=== PATIENT | male | born 1945 | race Caucasian/White ===

== ENCOUNTER 2016-08-07 15:14 | Emergency (ER) | payer OTHER, MEDICARE ==
[~2016-08-07] VITALS: Ht 188 cm; Wt 122.2 kg
[2016-08-07 15:24] VITALS: TEMP 36.6; Ht 188 cm; Wt 122.2 kg
[2016-08-07] MEDS ORDERED: SODIUM CHLORIDE 0.9% 1000ML 1,000 ML IV STA (16:20)
[2016-08-07] MEDS ORDERED: CEFTRIAXONE SOD INJ 1 GM ADDVIAL IV STA (16:20)
[2016-08-07 16:53] LABS: HEMATOCRIT 45.2 % (42-52); MEAN CELL VOLUME 86.3 fL (80-100); MEAN CORPUSCULAR HGB CONC 34.7 g/dl (32-36); MEAN PLATELET VOLUME 9.5 fL (7.4-10.4); PLATELET COUNT 198 K/uL (130-400); RED BLOOD COUNT 5.24 M/uL (4.7-6.1); WHITE BLOOD COUNT 13.51 K/uL (4.8-10.8)
[2016-08-07 17:02] LABS: INR 1.1 (0.9-1.1); PROTHROMBIN TIME (PATIENT) 11.9 SECONDS (9.0-12.0)
--- NOTE | 2016-08-07 17:07 | DIAGNOSTIC IMAGING REPORT ---
CHEST ONE VIEW PORTABLE CLINICAL HISTORY: Fever and sepsis COMPARISON STUDY: No previous studies for comparison. FINDINGS: The cardiac and mediastinal contours are normal. There is no evidence of focal pulmonary consolidation. There is no evidence of failure. No pleural effusions are visualized.[ There are linear bibasilar opacities, likely representing subsegmental atelectasis. Differential attenuation of the hemithoraces, likely relates to technical factors. IMPRESSION: Linear bibasilar opacities, likely atelectatic Electronically signed by: Shamir Hinson M.D. 08/07/2016 5:05 PM Dictated Date/Time: 08/07/2016 5:04 PM
[2016-08-07 17:14] LABS: BUN/CREATININE RATIO 16.4 (10-20); CALCIUM 9.5 mg/dl (8.5-10.1); CREATININE 1.9 mg/dl (0.60-1.40); POTASSIUM 3.8 mmol/L (3.5-5.1)
[2016-08-07 17:15] LABS: BASO % 0.1 %; BASO ABS # 0.02 K/uL (0-0.2); COMPLETE YES; EOS % 0.1 %; IG% 0.4 %; LYMPH % 2.7 %; LYMPH ABS # 0.36 K/uL (1.2-3.4); MONO % 7.2 %; NEUT % 89.5 %
[2016-08-07] MEDS ORDERED: LOSA1TAB38 PO (17:18)
[2016-08-07] MEDS ORDERED: ACET-1256 PO (17:18)
[2016-08-07] MEDS ORDERED: SYMIN160 INH (17:18)
[2016-08-07] MEDS ORDERED: PRLSR20 PO (17:18)
[2016-08-07] MEDS ORDERED: ATOR-22 PO (17:18)
[2016-08-07] MEDS ORDERED: NAPR1TAB9 PO (17:18)
[2016-08-07] MEDS ORDERED: TRIA75TA53 PO (17:18)
[2016-08-07] MEDS ORDERED: ASPI81TA28 PO (17:18)
[2016-08-07] MEDS ORDERED: TRMCR130WC TOP (17:18)
[2016-08-07] MEDS ORDERED: CARV6.252 PO (17:18)
[2016-08-07] MEDS ORDERED: SPRIN/30 INH (17:18)
[2016-08-07] MEDS ORDERED: LEVO1TAB33 PO (17:18)
[2016-08-07] MEDS ORDERED: SPIR25TA PO (17:18)
[2016-08-07 17:19] LABS: CKMB/CK RATIO 1.2 (0-3.0)
[2016-08-07] MEDS ORDERED: ONDANSETRON INJ 2 MG/ML 2 ML VIAL IV STA (17:26)
[2016-08-07 18:51] LABS: MANUAL MICROSCOPIC REQUIRED? NO; REVIEW REQ? NO; URINE APPEARANCE CLOUDY (CLEAR); URINE BILIRUBIN NEG (NEG); ZZURINE CULT IF INDIC CATH YES
[2016-08-07 18:52] LABS: URINE COLOR YELLOW; URINE NITRITE NEG (NEG); UROBILINOGEN NEG (NEG)
[2016-08-07] MEDS ORDERED: LEVO-366 PO (19:55)
--- NOTE | 2016-08-07 19:56 | EMERGENCY ROOM VISIT NOTE ---
History Report prepared by Jaimieibjorge: Joanne Fernandez Under the Supervision of: Dr. Zach Bragg D.O. First contact with patient: 16:14 Chief Complaint: URINARY SYMPTOMS Stated Complaint: FEVER,NAUSEA,CAN'T VOID Nursing Triage Summary: Patient states "I think I have a urinary tract infection or prostatitis. I have had fevers on and off. I tried to do a urinalysis at the PCP about 20 minutes ago. I could only get out a few drops of pus." 750mg Levaquin taken this morning. 1 Aleve and 1 extra strength Tylenol taken at 1230. History of Present Illness The patient is a 71 year old male who presents to the Emergency Room with complaints of persistent urinary symptoms that started earlier today. He is accompanied by his . He reports he hasn't been able to urinate normally since 1230 this afternoon. He rates his discomfort as a 5/10 in severity. Aleve and Tylenol have provided minimal relief for his discomfort. He reports he has a history of UTI's and prostatitis. He saw Dr. Carbajal at [facility] earlier today and when he tried to give a urine sample, "2 small drops of pus came out". He notes when he does urinate, he experiences dysuria. The patient believes he has had intermittent fevers for the past day and his states "he has had terrible chills all day". His temperature at the [facility] was approximately 100.6. He has not eaten today and has been very nauseous, but has not vomited. Source of History: patient Onset: earlier today Position: other (urinary system) Symptom Intensity: 5/10 Timing: other (persistent) Modifying Factors (Relieving): ibuprofen (Aleve, Ibuprofen) Associated Symptoms: + chills, + fevers, + nausea, No vomiting Review of Systems See HPI for pertinent positives & negatives. A total of 10 systems reviewed and were otherwise negative. Past Medical & Surgical Medical Problems: (1) Prostatitis Social History Smoking Status: Former Smoker Alcohol Use: occasionally Drug Use: none Marital Status: Housing Status: lives with family Occupation Status: retired Current/Historical Medications Scheduled Acetaminophen (Tylenol), 500 MG PO PRN Aspirin (Aspirin Ec), 81 MG PO DAILY Atorvastatin (Lipitor), 20 MG PO DAILY Budesonide/Formoterol Fumarate (Symbicort 160/4.5 Inhaler ), 2 PUFFS INH BID Carvedilol (Coreg), 6.25 MG PO BID Levofloxacin (Levaquin), 500 MG PO DAILY Levofloxacin (Levaquin), 500 MG PO DAILY Losartan Potassium (Cozaar), 100 MG PO DAILY Omeprazole (Prilosec), 20 MG PO DAILY Spironolactone (Aldactone), 25 MG PO DAILY Tiotropium [place] (Spiriva Handihaler), 1 CAP INH DAILY Triamcinolone Acet (Aristocort 0.1%), 1 APPLN TOP BID Triamterene/Hctz (Maxzide 75MG/50MG), 1 TAB PO DAILY Scheduled PRN Naproxen (Aleve), 220-440 MG PO TID PRN for PT Allergies Coded Allergies: Ciprofloxacin (Verified Allergy, Mild, Hives, 08/07/16) Sulfamethoxazole w/Trimethoprim (Verified Allergy, Mild, Hives, 08/07/16) Physical Exam Vital Signs Date Time Temp Pulse Resp B/P Pulse Ox O2 Delivery O2 Flow Rate FiO2 08/07/16 18:22 85 20 89/54 97 Room Air 08/07/16 15:24 36.6 98 16 95/67 94 Room Air Physical Exam CONSTITUTIONAL/VITAL SIGNS: Reviewed / noted above. GENERAL: Non-toxic in appearance. INTEGUMENTARY: Warm, dry, and [place]. HEAD: Normocephalic. EYES: without scleral icterus or trauma. ENT/OROPHARYNX: clear and moist. LYMPHADENOPATHY/NECK: Is supple without lymphadenopathy or meningismus. RESPIRATORY: Lungs clear and equal. CARDIOVASCULAR: Regular rate and rhythm. GI/ABDOMEN: Soft and nontender. No organomegaly or pulsatile mass. No rebound or guarding. Normal bowel sounds. EXTREMITIES: Warm and well perfused. BACK: No CVA tenderness. NEUROLOGICAL: Intact without focal deficits. PSYCHIATRIC: normal affect. MUSCULOSKELETAL: Normally developed with good muscle tone. Rectal exam: non tender prostate. Medical Decision & Procedures ER Provider Diagnostic Interpretation: This X-Ray was reviewed and interpreted by myself and the radiologist. CHEST ONE VIEW PORTABLE IMPRESSION: Linear bibasilar opacities, likely atelectatic Electronically signed by: Shamir Hinson M.D. 08/07/2016 5:05 PM Laboratory Results 08/07/16 16:30 Red Blood Count 5.24, Mean Corpuscular Volume 86.3, Mean Corpuscular Hemoglobin 30.0, Mean Corpuscular Hemoglobin Concent 34.7, Mean Platelet Volume 9.5, Neutrophils (%) (Auto) 89.5, Lymphocytes (%) (Auto) 2.7, Monocytes (%) (Auto) 7.2, Eosinophils (%) (Auto) 0.1, Basophils (%) (Auto) 0.1, Neutrophils # (Auto) 12.09, Lymphocytes # (Auto) 0.36, Monocytes # (Auto) 0.97, Eosinophils # (Auto) 0.02, Basophils # (Auto) 0.02 08/07/16 16:30 Test 08/07/16 16:30 08/07/16 18:15 White Blood Count 13.51 K/uL (4.8-10.8) Red Blood Count 5.24 M/uL (4.7-6.1) Hemoglobin 15.7 g/dL (14.0-18.0) Hematocrit 45.2 % (42-52) Mean Corpuscular Volume 86.3 fL (80-100) Mean Corpuscular Hemoglobin 30.0 pg (25-34) Mean Corpuscular Hemoglobin Concent 34.7 g/dl (32-36) Platelet Count 198 K/uL (130-400) Mean Platelet Volume 9.5 fL (7.4-10.4) Neutrophils (%) (Auto) 89.5 % Lymphocytes (%) (Auto) 2.7 % Monocytes (%) (Auto) 7.2 % Eosinophils (%) (Auto) 0.1 % Basophils (%) (Auto) 0.1 % Neutrophils # (Auto) 12.09 K/uL (1.4-6.5) Lymphocytes # (Auto) 0.36 K/uL (1.2-3.4) Monocytes # (Auto) 0.97 K/uL (0.11-0.59) Eosinophils # (Auto) 0.02 K/uL (0-0.5) Basophils # (Auto) 0.02 K/uL (0-0.2) RDW Standard Deviation 44.6 fL (36.4-46.3) RDW Coefficient of Variation 14.3 % (11.5-14.5) Immature Granulocyte % (Auto) 0.4 % Immature Granulocyte # (Auto) 0.05 K/uL (0.00-0.02) Prothrombin Time 11.9 SECONDS (9.0-12.0) Prothromb Time International Ratio 1.1 (0.9-1.1) Activated Partial Thromboplast Time 25.6 SECONDS (21.0-31.0) Partial Thromboplastin Ratio 1.0 Anion Gap 12.0 mmol/L (3-11) Est Creatinine Clear Calc Drug Dose 51.0 ml/min Estimated GFR () 40.8 Estimated GFR (Non- 35.2 BUN/Creatinine Ratio 16.4 (10-20) Calcium Level 9.5 mg/dl (8.5-10.1) Total Bilirubin 1.2 mg/dl (0.2-1) Direct Bilirubin 0.2 mg/dl (0-0.2) Aspartate Amino Transf (AST/SGOT) 27 U/L (15-37) Alanine Aminotransferase (ALT/SGPT) 41 U/L (12-78) Alkaline Phosphatase 75 U/L (45-117) Total Creatine Kinase 69 U/L (39-308) Creatine Kinase MB 0.8 ng/ml (0.5-3.6) Creatine Kinase MB Ratio 1.2 (0-3.0) Total Protein 7.3 gm/dl (6.4-8.2) Albumin 3.9 gm/dl (3.4-5.0) Lipase 100 U/L (73-393) Urine Color YELLOW Urine Appearance CLOUDY (CLEAR) Urine pH 6.0 (4.5-7.5) Urine Specific [place] 1.030 (1.000-1.030) Urine Protein 3+ (NEG) Urine Glucose (UA) NEG (NEG) Urine Ketones NEG (NEG) Urine Occult Blood 3+ (NEG) Urine Nitrite NEG (NEG) Urine Bilirubin NEG (NEG) Urine Urobilinogen NEG (NEG) Urine Leukocyte Esterase MODERATE (NEG) Laboratory results as stated above per my review. Medications Administered Medications (Trade) Dose Ordered Sig/Felipe Route Start Time Stop Time Status Last Admin Dose Admin Sodium Chloride (Nss 1000ml) 1,000 ml @ 500 mls/hr Q2H STAT IV 08/07/16 16:20 08/07/16 18:19 DC 08/07/16 16:37 500 MLS/HR Ceftriaxone Sodium (Rocephin Inj) 1 gm NOW STAT IV 08/07/16 16:20 08/07/16 16:24 DC 08/07/16 18:17 1 GM Ondansetron HCl (Zofran Inj) 4 mg NOW STAT IV 08/07/16 17:26 08/07/16 17:27 DC 08/07/16 18:21 4 MG ED Course 161: Previous medical records were reviewed. The patient was evaluated in room B8. A complete history and physical examination was performed. 1620: Rocephin 1 gm IV, NSS 1000 ml @ 500 mls/hr IV. 162: Bladder scan performed by nursing staff revealed less than 45 CC's of urine in the patients bladder. 1725: Zofran 4 mg IV. 1944: I reevaluated the patient. He is feeling well. I discussed his results and discharge instructions and he verbalized complete understanding and agreement. Medical Decision Differential includes viral illness, influenza, streptococcal pharyngitis, meningitis, pneumonia, sinusitis, UTI, pyelonephritis, otitis media. This is a 71-year-old male who presents to the ED with a chief complaint of urinary frequency as well as some chills. The patient states that his symptoms started around 11 AM this morning. She has a little nausea with eating. He was seen by his PCP and states that there was purulent drainage from his penis and he was sent here for evaluation. Blood pressure is 95/67. He is afebrile. He reportedly had a temperature of 100.1 at the PCPs office. EKG shows a normal sinus rhythm. White blood cell count was 13.5. The BUN is 31 and the creatinine is 1.9. Baseline creatinine is 1.4. Chest x-ray reveals some linear basilar opacity/atelectasis. Urinalysis suggests infection. The patient took a Levaquin earlier today at 11:30 AM. He was given IV Rocephin here as well as a liter of IV fluids and some IV Zofran. He is felt to be stable for discharge and outpatient follow-up. The patient feels comfortable going home and is without significant symptoms at this time. Prescription for Levaquin was given. The patient requested Levaquin. He states that he has had allergy testing and is able to take Levaquin. He states that his doctor gives him this to have on hand at home for pulmonary symptoms. Impression Primary Impression: Urinary tract infection Additional Impressions: Dehydration Renal insufficiency Scribe Attestation The scribe's documentation has been prepared under my direction and personally reviewed by me in its entirety. I confirm that the note above accurately reflects all work, treatment, procedures, and medical decision making performed by me. Departure Information Dispostion Home / Self-Care Prescriptions Levofloxacin (Levaquin) 500 Mg Tab 500 MG PO DAILY for 7 Days, #7 TAB Prov: Zach Bragg D.O. 08/07/16 Referrals Robert Carbajal M.D. (PCP) Patient Instructions My [facility], UTI Additional Instructions Levaquin as prescribed. Increase daily fluid intake. Follow-up with your doctor for recheck in one to 3 days. Return for worsening. Problem Qualifiers
[2016-08-07 20:11] LABS: URINE APPEARANCE TURBID (CLEAR); URINE COLOR DK YELLOW; URINE NITRITE NEG (NEG); URINE SPECIFIC GRAVITY 1.023 (1.000-1.030); UROBILINOGEN NEG (NEG)
[2016-08-07 20:15] LABS: MANUAL MICROSCOPIC REQUIRED? NO; REVIEW REQ? YES
[2016-08-07 20:16] LABS: URINE BILIRUBIN NEG (NEG)
[2016-08-07 20:34] VITALS: BP 118/65; PULSE 84; O2SAT 94
== END 2016-08-07 20:39 | disposition home or self-care (01) ==
LOC: C.EDB 15:15
DX: N39.0 Urinary tract infection, site not specified (principal); E86.0 Dehydration; N28.9 Disorder of kidney and ureter, unspecified; Z87.891 Personal history of nicotine dependence; Z79.82 Long term (current) use of aspirin; Z79.899 Other long term (current) drug therapy; Z88.2 Allergy status to sulfonamides

== ENCOUNTER 2021-10-04 10:08 | Inpatient (IN) ==
[2021-10-04] MEDS ORDERED: SODIUM CHLORIDE 0.9% 1000ML 1,000 ML IV ONE (10:24)
[2021-10-04 10:35] LABS: Basophils # (auto) 0.09 K/uL (0-0.2); Basophils % (auto) 1.6 %; Eosinophils # (auto) 0.06 K/uL (0-0.5); Eosinophils % (auto) 1.1 %; Hematocrit (blood only) 41.7 % (42-52); Hemoglobin 13.8 g/dL (14.0-18.0); Immature Granulocytes # (auto) 0.01 K/uL (0.00-0.02); Immature Granulocytes % (auto) 0.2 %; Lymphocytes # (auto) 1.33 K/uL (1.2-3.4); Lymphocytes % (auto) 23.7 %; Mean Corpuscular Hemoglobin 30.1 pg (25-34); Mean Corpuscular Hgb Conc 33.1 g/dL (32-36); Mean Corpuscular Volume 90.8 fL (80-100); Mean Platelet Volume 9.5 fL (7.4-10.4); Monocytes # (auto) 0.57 K/uL (0.11-0.59); Monocytes % (auto) 10.2 %; Neutrophils # (auto) 3.55 K/uL (1.4-6.5); Neutrophils % (auto) 63.2 %; Platelet Count 387 K/uL (130-400); RDW Coefficient of Variation 15.6 % (11.5-14.5); RDW Standard Deviation 51.9 fL (36.4-46.3); Red Blood Count 4.59 M/uL (4.7-6.1); White Blood Count 5.61 K/uL (4.8-10.8)
--- NOTE | 2021-10-04 10:39 | XRay Report ---
SINGLE VIEW CHEST CLINICAL HISTORY: Atypical chest pain. Dyspnea FINDINGS: An AP, portable, upright chest radiograph is compared to study dated 08/07/2016. The heart i s enlarged noting atherosclerotic calcification of the thoracic aorta. The pulmonary vasculature is n oncongested. Emphysematous changes suspected. Airspace opacities are seen in the mid to lower lungs. No large pleural effusion or pneumothorax is identified. The skeletal structures are osteopenic. The bony thorax is grossly intact. IMPRESSION: 1. Cardiomegaly and suspect emphysema. There is no radiographic evidence of congestive failure. 2. Bibasilar opacities likely represent scarring/atelectasis. Correlate clinically for evidence of a superimposed infectious/inflammatory pneumonitis ACT 112: Negative or not required by law. Electronically signed by: Babatunde Kirkpatrick M.D. 10/04/2021 10:38 AM
[2021-10-04] MEDS ORDERED: METOPROLOL TARTRATE 1 MG/ML VIAL IV STA ×2 (10:49→11:46)
[2021-10-04 11:09] LABS: Albumin Globulin Ratio 1.1 (0.9-2); Albumin Level 3.8 gm/dl (3.4-5.0); BUN Creatinine Ratio 17.7 (10-20); Calcium 9.5 mg/dl (8.5-10.1); Creatinine Clr Calc Pharmacy 50.1 ml/min; Est GFR (African American) 40.4 ml/min; Est GFR (Non-African American) 34.9 ml/min; Globulin 3.6 gm/dl (2.5-4.0); Magnesium 1.6 mg/dl (1.7-2.4); Phosphorus 3.1 mg/dl (2.5-4.9); Potassium 4.3 mmol/L (3.5-5.1); Total Protein 7.4 gm/dl (6.0-8.3)
[2021-10-04 11:31] LABS: Influenza A virus by PCR Negative (Neg); Influenza B virus by PCR Negative (Neg); RSV by PCR Negative (Neg); SARS CoV2 RNA(COVID-19) InHosp NEGATIVE (Negative)
--- NOTE | 2021-10-04 11:33 | Emergency Department Note ---
Impression & Plan Atrial fibrillation with rapid ventricular response, CKD (chronic kidney disease), COPD (chronic obstructive pulmonary disease), Hypomagnesemia ED Provider Note NAME: PRIYA SAMAYOA AGE: 76 SEX: M ARRIVES VIA: Walk-In INFORMANT: Patient ED PROVIDER(S): Hernandez Espinoza MD CHIEF COMPLAINT: Shortness of breath, referred PLAN: Disposition: Admit MEDICAL DECISION MAKING: The patient is a pleasant 76-year-old gentleman with a past medical history of CKD, COPD, with recent new diagnosis of atrial fibrillation during PCP visit on 09/28 where he was switched from carvedilol to 25 mg daily of metoprolol succinate and started on Eliquis who presents to the emergency department referred from his [facility] office for admission after having routine visit today and was noted to be in A. fib RVR in the 130s with low blood pressure systolic in the 90s. Patient reports he has been having ongoing shortness of breath since July where he was seen in [place] at that time and treated for COPD and negative CTA of the chest per the report. He reports progressive worsening of the shortness of breath since then and in particular over the past month. He notes he was diagnosed with a urinary tract infection in August and is completing 21 days of ciprofloxacin. He followed up with his primary care doctor last week for his ongoing shortness of breath and it was noted that he was in A. fib and treatment was initiated. He has a scheduled appoint with cardiology on Sunday. He reports prior to today he has been using his inhalers more frequently due to feeling his shortness of breath was related to COPD. He admits that he does not feel palpitations or heart racing see his A. fib and despite his heart rate in the 130s-150s during our interview he denied having any sensation in his chest. Therefore it is unclear when the patient's A. fib may actually have started. On arrival the patient is fatigued appearing but no acute distress, afebrile with heart rate in the 130s-150s in atrial fibrillation and blood pressure otherwise stable. He has 1+ bilateral lower extremity pitting edema which she reports is chronic for the patient for years and is not particularly worse. EKG demonstrates atrial fibrillation with RVR in the 150s without overt acute ischemia. Chest x-ray with no overt acute cardiopulmonary process and likely atelectasis at the bases. WBC and platelets within normal limits. H/H13.8/41.7. Creatinine 1.86 which appears improved from prior outpatient values in the [facility] records. Magnesium 1.6 with repletion provided. ALT 73, nonspecific and LFTs otherwise unremarkable. High-sensitivity troponin 10.3, within normal limits. BNP 400, nonspecific and in the setting of the patient's RVR. Lipase is not elevated. TSH within normal limits. UA without convincing evidence of infection. Covid-19 PCR negative. Influenza and RSV PCR negative. Patient was treated with 500 cc of normal saline and 5 mg of IV Lopressor with subsequent improvement in his heart rate to the 100s-120s. He was then ordered for second 5 mg of IV Lopressor but then this was held as his rate continued to improve to 90s-100s. He was then ordered for 25 mg of oral Lopressor. Given the patient's atrial fibrillation with RVR in the setting of his CKD reasonable to admit the patient for further management. Case was discussed with Laila Baker [facility] PAC with [facility]. [facility] [place] [facility], who will evaluate the patient for admission. Triage Nursing notes reviewed and agree them. Prior medical records reviewed Vital Signs: reviewed and remarkable for tachycardia. Differential diagnosis: Reactive airway disease, pneumonia, pneumothorax, COPD, CHF, infections, cardiac ischemia, pulmonary embolism, musculoskeletal, gastrointestinal, as well as other pathologies. ER treatment provided: See below. Diagnostics interpreted by me: ECG: Atrial fibrillation, 151 bpm, no ectopy, right bundle branch block, T wave abnormality, no overt ST elevation or depression. Cardiac Monitoring: An order for continuous cardiac monitoring was placed and demonstrated atrial fibrillation, 151 bpm, no ectopy. Laboratory studies: See below Imaging studies: See below Consultation(s): Case was discussed with Laila [facility]. HPI: The patient is a pleasant 76-year-old gentleman with a past medical history of CKD, COPD, with recent new diagnosis of atrial fibrillation during PCP visit on 09/28 where he was switched from carvedilol to 25 mg daily of metoprolol succinate and started on Eliquis who presents to the emergency department referred from his [facility] office for admission after having routine visit today and was noted to be in A. fib RVR in the 130s with low blood pressure systolic in the 90s. Patient reports he has been having ongoing shortness of breath since July where he was seen in [place] at that time and treated for COPD and negative CTA of the chest per the report. He reports progressive worsening of the shortness of breath since then and in particular over the past month. He notes he was diagnosed with a urinary tract infection in August and is completing 21 days of ciprofloxacin. He followed up with his primary care doctor last week for his ongoing shortness of breath and it was noted that he was in A. fib and treatment was initiated. He has a scheduled appoint with cardiology on Sunday. He reports prior to today he has been using his inhalers more frequently due to feeling his shortness of breath was related to COPD. He admits that he does not feel palpitations or heart racing see his A. fib and despite his heart rate in the 130s-150s during our interview he denied having an y sensation in his chest. Therefore it is unclear when the patient's A. fib may actually have started. ROS: See above HPI for pertinent positives & negatives. A total of 10 systems reviewed and were otherwise negative. VITALS:See Below PHYSICAL EXAMINATION: GENERAL: Awake, alert, well-appearing, in no distress HENT: Normocephalic, atraumatic. Oropharynx with dry mucous membranes and otherwise unremarkable. EYES: Normal conjunctiva. Sclera non-icteric. NECK: Supple. No nuchal rigidity. FROM. No JVD. RESPIRATORY: Clear to auscultation. CARDIAC: Tachycardic rate, irregular rhythm. Extremities warm and well perfused. Pulses equal. ABDOMEN: Soft, non-distended. No tenderness to palpation. No rebound or guarding. No masses. RECTAL: Deferred. MUSCULOSKELETAL: Chest examination reveals no tenderness. The back is sym metrical on inspection without obvious abnormality. There is no CVA tenderness to palpation. No joint edema. LOWER EXTREMITIES: Calves are equal size bilaterally and non-tender. 1+ BLE pitting edema. No discoloration. NEURO: Normal sensorium. No sensory or motor deficits noted. SKIN: No rash or jaundice noted. ED COURSE: Critical Care: I have personally spent greater than 45 minutes of critical care time in the direct management of this patient. This includes bedside care, interpretation of diagnostic studies, and testing, discussion with consultants, patient, and family members, and other required patient management activities. This 45 minutes is in excess of all separately billable procedures. Hernandez Espinoza MD Past Med/Surg History Medical History Atrial fibrillation BPH (benign prostatic hyperplasia) COPD, group C, by GOLD 2017 classification Dyslipidemia GERD (gastroesophageal reflux disease) HTN (hypertension) Hx of melanoma of skin SILVERMAN (nonalcoholic steatohepatitis) Prostatitis Stage 3b chronic kidney disease (CKD) Surgical History No significant past surgical history Family History Denies family history of Heart disease Kidney disease Social History Smoking Status: Former smoker Smoking End Date: 24 years ago; Hx Alcohol Use: No Hx Substance Use: No Preferred Language: [place] Communication Ability: Effective Assistant At Surgery Required: No Beliefs That Will Affect Care: None Current Living Situation: Spouse Other Information That Helps Us Care for You: No Feels Safe at Home: Yes Safety Concerns: Feels Safe At This Time Assistive Devices: Cane and Glasses Allergies Allergies Allergy/AdvReac Type Severity Reaction Status Date / Time Bactrim Allergy Mild Hives Verified 08/07/16 15:24 sulfamethoxazole Allergy Mild Hives Verified 10/04/21 11:18 trimethoprim Allergy Mild Hives Verified 10/04/21 11:18 Home Meds Home Medications Medication Instructions Recorded Confirmed albuterol sulfate 90 mcg/actuation 2 puff INHALATION Q4 PRN 10/04/21 10/04/21 aerosol inhaler aspirin 81 mg tablet,delayed 81 mg PO DAILY 10/04/21 10/04/21 release atorvastatin 20 mg tablet 20 mg PO DAILY 10/04/21 10/04/21 budesonide-formoterol HFA 160 2 puff INHALATION BID 10/04/21 10/04/21 mcg-4.5 mcg/actuation aerosol inhaler (Symbicort) cholecalciferol (vitamin D3) 25 25 mcg PO DAILY 10/04/21 10/04/21 mcg (1,000 unit) tablet (Vitamin D3) ciprofloxacin HCl 500 mg tablet 500 mg PO BID 10/04/21 10/04/21 famotidine 40 mg tablet 40 mg PO DAILY 10/04/21 10/04/21 losartan 100 mg tablet 50 mg PO DAILY 10/04/21 10/04/21 metoprolol succinate 25 mg 25 mg PO DAILY 10/04/21 10/04/21 tablet,extended release 24 hr prednisone 10 mg tablet 10 mg PO DIRECTED PRN 10/04/21 10/04/21 rivaroxaban 20 mg tablet (Xarelto) 20 mg PO DAILY 10/04/21 10/04/21 tiotropium bromide 18 mcg capsule 1 cap INHALATION DAILY 10/04/21 10/04/21 with inhalation device (Spiriva with HandiHaler) tramadol 50 mg tablet 50 mg PO Q6H PRN 10/04/21 10/04/21 triamcinolone acetonide 0.1 % 1 applic TOPICAL BID PRN 10/04/21 10/04/21 topical cream triamterene 75 1 tab PO DAILY 10/04/21 10/04/21 mg-hydrochlorothiazide 50 mg tablet Results & Data (ED) Vital Signs Vital Signs - 24 hr 10/04/21 10:08 10/04/21 10:26 10/04/21 10:30 Temperature 36.5 C Temperature Source Temporal Artery Scan Pulse Rate 121 H 140 H 143 H Pulse Rate [Apical] Pulse Rate from SpO2 Sensor 107 H Pulse Rhythm [Apical] Respiratory Rate 22 19 12 Respiratory Effort / Characteristics Non-Labored Respiratory Depth Blood Pressure 149/98 H 143/85 H Blood Pressure [Left Arm] Blood Pressure Mean 115 104 Blood Pressure Mean [Left Arm] Blood Pressure Position Sitting Pulse Oximetry 97 97 Oxygen Delivery Method Room Air Room Air Sepsis Recent Fever Within 48 Hours No Sepsis New/Unexplained Change in Mental Status No Sepsis Action Taken by Nursing No Action Required 10/04/21 10:31 10/04/21 10:45 10/04/21 11:05 Temperature Temperature Source Pulse Rate 156 H Pulse Rate [Apical] 137 H 117 H Pulse Rate from SpO2 Sensor 129 H Pulse Rhythm [Apical] Respiratory Rate 17 18 18 Respiratory Effort / Characteristics Non-Labored Non-Labored Respiratory Depth Normal Normal Blood Pressure 135/97 Blood Pressure [Left Arm] 135/97 119/85 Blood Pressure Mean 109 Blood Pressure Mean [Left Arm] 109 96 Blood Pressure Position Pulse Oximetry 97 97 95 Oxygen Delivery Method Room Air Room Air Sepsis Recent Fever Within 48 Hours Sepsis New/Unexplained Change in Mental Status Sepsis Action Taken by Nursing 10/04/21 11:15 10/04/21 11:45 10/04/21 12:00 Temperature Temperature Source Pulse Rate Pulse Rate [Apical] 114 H 102 H 99 H Pulse Rate from SpO2 Sensor Pulse Rhythm [Apical] Irregular Respiratory Rate 18 18 18 Respiratory Effort / Characteristics Non-Labored Non-Labored Non-Labored Respiratory Depth Normal Normal Normal Blood Pressure Blood Pressure [Left Arm] 122/87 116/71 119/89 Blood Pressure Mean Blood Pressure Mean [Left Arm] 98 86 99 Blood Pressure Position Pulse Oximetry 95 95 97 Oxygen Delivery Method Room Air Room Air Room Air Sepsis Recent Fever Within 48 Hours Sepsis New/Unexplained Change in Mental Status Sepsis Action Taken by Nursing 10/04/21 12:10 Temperature Temperature Source Pulse Rate Pulse Rate [Apical] 92 H Pulse Rate from SpO2 Sensor Pulse Rhythm [Apical] Respiratory Rate 18 Respiratory Effort / Characteristics Non-Labored Respiratory Depth Normal Blood Pressure Blood Pressure [Left Arm] Blood Pressure Mean Blood Pressure Mean [Left Arm] Blood Pressure Position Pulse Oximetry 97 Oxygen Delivery Method Room Air Sepsis Recent Fever Within 48 Hours Sepsis New/Unexplained Change in Mental Status Sepsis Action Taken by Nursing Laboratory Data Attestation: I reviewed the patient's lab results. Result diagrams: 10/04/21 10:20 10/04/21 10:20 Lab Results 10/04/21 10/04/21 10/04/21 Range/Units 10:20 10:20 10:20 WBC 5.61 (4.8-10.8) K/uL RBC 4.59 L (4.7-6.1) M/uL Hgb 13.8 L (14.0-18.0) g/dL Hct 41.7 L (42-52) % MCV 90.8 (80-100) fL MCH 30.1 (25-34) pg MCHC 33.1 (32-36) g/dL RDW Std Deviation 51.9 H (36.4-46.3) fL RDW Coeff of [place] 15.6 H (11.5-14.5) % Plt Count 387 (130-400) K/uL MPV 9.5 (7.4-10.4) fL Immature Gran % (Auto) 0.2 % Neut % (Auto) 63.2 % Lymph % (Auto) 23.7 % Lewis % (Auto) 10.2 % Eos % (Auto) 1.1 % Baso % (Auto) 1.6 % Neut # (Auto) 3.55 (1.4-6.5) K/uL Lymph # (Auto) 1.33 (1.2-3.4) K/uL Lewis # (Auto) 0.57 (0.11-0.59) K/uL Eos # (Auto) 0.06 (0-0.5) K/uL Baso # (Auto) 0.09 (0-0.2) K/uL Immature Gran # (Auto) 0.01 (0.00-0.02) K/uL Sodium 137 (136-145) mmol/L Potassium 4.3 (3.5-5.1) mmol/L Chloride 104 (98-107) mmol/L Carbon Dioxide 24 (21-32) mmol/L Anion Gap 9 (3-11) BUN 33 H (6-23) mg/dl Creatinine 1.86 H (0.6-1.4) mg/dl Est Cr Clr Drug Dosing 50.1 ml/min Est GFR ( Amer) 40.4 ml/min Est GFR (Non-Af Amer) 34.9 ml/min BUN/Creatinine Ratio 17.7 (10-20) Glucose 106 H (70-99(Fasting)) mg/dl Calcium 9.5 (8.5-10.1) mg/dl Phosphorus 3.1 (2.5-4.9) mg/dl Magnesium 1.6 L (1.7-2.4) mg/dl Total Bilirubin 1.0 (0.2-1.0) mg/dl AST 35 (13-39) U/L ALT 73 H (7-52) U/L Alkaline Phosphatase 69 (34-104) U/L Troponin I High Sens 10.3 (0-20) pg/ml Total Protein 7.4 (6.0-8.3) gm/dl Albumin 3.8 (3.4-5.0) gm/dl Globulin 3.6 (2.5-4.0) gm/dl Albumin/Globulin Ratio 1.1 (0.9-2) Lipase 21 (11-82) U/L TSH (0.300-4.500) uIu/ml SARS-CoV-2 (PCR) (Negative) Influenza Type A (PCR) (Neg) Influenza Type B (PCR) (Neg) RSV (RT-PCR) (Neg) 10/04/21 10/04/21 Range/Units 10:20 10:45 WBC (4.8-10.8) K/uL RBC (4.7-6.1) M/uL Hgb (14.0-18.0) g/dL Hct (42-52) % MCV (80-100) fL MCH (25-34) pg MCHC (32-36) g/dL RDW Std Deviation (36.4-46.3) fL RDW Coeff of [place] (11.5-14.5) % Plt Count (130-400) K/uL MPV (7.4-10.4) fL Immature Gran % (Auto) % Neut % (Auto) % Lymph % (Auto) % Lewis % (Auto) % Eos % (Auto) % Baso % (Auto) % Neut # (Auto) (1.4-6.5) K/uL Lymph # (Auto) (1.2-3.4) K/uL Lewis # (Auto) (0.11-0.59) K/uL Eos # (Auto) (0-0.5) K/uL Baso # (Auto) (0-0.2) K/uL Immature Gran # (Auto) (0.00-0.02) K/uL Sodium (136-145) mmol/L Potassium (3.5-5.1) mmol/L Chloride (98-107) mmol/L Carbon Dioxide (21-32) mmol/L Anion Gap (3-11) BUN (6-23) mg/dl Creatinine (0.6-1.4) mg/dl Est Cr Clr Drug Dosing ml/min Est GFR ( Amer) ml/min Est GFR (Non-Af Amer) ml/min BUN/Creatinine Ratio (10-20) Glucose (70-99(Fasting)) mg/dl Calcium (8.5-10.1) mg/dl Phosphorus (2.5-4.9) mg/dl Magnesium (1.7-2.4) mg/dl Total Bilirubin (0.2-1.0) mg/dl AST (13-39) U/L ALT (7-52) U/L Alkaline Phosphatase (34-104) U/L Troponin I High Sens (0-20) pg/ml Total Protein (6.0-8.3) gm/dl Albumin (3.4-5.0) gm/dl Globulin (2.5-4.0) gm/dl Albumin/Globulin Ratio (0.9-2) Lipase (11-82) U/L TSH 1.669 (0.300-4.500) uIu/ml SARS-CoV-2 (PCR) NEGATIVE (Negative) Influenza Type A (PCR) Negative (Neg) Influenza Type B (PCR) Negative (Neg) RSV (RT-PCR) Negative (Neg) Administered Medications Rivaroxaban (Rivaroxaban 20 Mg Tab) 20 mg PO QDD LÓPEZ Stop: 11/03/21 16:29 Last Admin: 10/04/21 17:15 Dose: 20 mg Documented by: [id number] Discontinued Medications Furosemide (Furosemide 40 Mg/4 Ml Vial) 40 mg IV ONE ONE Stop: 10/04/21 13:44 Last Admin: 10/04/21 14:35 Dose: 40 mg Documented by: [id number] Sodium Chloride (Nss 1000ml) 1,000 mls @ 999 mls/hr IV .Q1H1M ONE Stop: 10/04/21 11:24 Last Infusion: 10/04/21 11:10 Dose: 0 mls/hr Documented by: [id number] Admin: 10/04/21 10:41 Dose: 999 mls/hr Documented by: [id number] Magnesium Sulfate/Dextrose (Magnesium Sulfate / D5w) 1 gm in 100 mls @ 100 mls/hr IV Q1H LÓPEZ Stop: 10/04/21 13:23 Last Infusion: 10/04/21 15:05 Dose: 0 mls/hr Documented by: [id number] Admin: 10/04/21 13:04 Dose: 100 mls/hr Documented by: [id number] Infusion: 10/04/21 12:42 Dose: 100 mls/hr Documented by: [id number] Admin: 10/04/21 11:42 Dose: 100 mls/hr Documented by: [id number] Metoprolol Tartrate (Metoprolol Tartrate 1 Mg/Ml Vial) 5 mg IV NOW STA Stop: 10/04/21 10:50 Last Admin: 10/04/21 10:54 Dose: 5 mg Documented by: [id number] Metoprolol Tartrate (Metoprolol Tartrate 1 Mg/Ml Vial) 5 mg IV NOW STA Stop: 10/04/21 11:47 Last Admin: 10/04/21 13:29 Dose: Not Given Documented by: [id number] Metoprolol Tartrate (Metoprolol Tartrate 25 Mg Tab) 25 mg PO NOW STA Stop: 10/04/21 12:13 Last Admin: 10/04/21 12:17 Dose: 25 mg Documented by: [id number] Imaging Data Radiologist's Impression: Chest X-Ray 10/04/21 10:24 SINGLE VIEW CHEST CLINICAL HISTORY: Atypical chest pain. Dyspnea FINDINGS: An AP, portable, upright chest radiograph is compared to study dated 08/07/2016. The heart is enlarged noting atherosclerotic calcification of the thoracic aorta. The pulmonary vasculature is noncongested. Emphysematous changes suspected. Airspace opacities are seen in the mid to lower lungs. No large pleural effusion or pneumothorax is identified. The skeletal structures are osteopenic. The bony thorax is grossly intact. IMPRESSION: 1. Cardiomegaly and suspect emphysema. There is no radiographic evidence of congestive failure. 2. Bibasilar opacities likely represent scarring/atelectasis. Correlate clini rebecca for evidence of a superimposed infectious/inflammatory pneumonitis ACT 112: Negative or not required by law. Electronically signed by: Babatunde Kirkpatrick M.D. 10/04/2021 10:38 AM Discharge Plan Visit Data Chief Complaint: Shortness of Breath/Dyspnea Stated Complaint: HEART PROBLEM,SHORTNESS OF BREATH Discharge Problem: Atrial fibrillation with rapid ventricular response, CKD (chronic kidney disease), COPD (chronic obstructive pulmonary disease), Hypomagnesemia Patient Disposition: Admitted As Inpatient Discharge Instructions Interventions: ED Discharge Assessment Last Done: 10/04/21 13:51
--- NOTE | 2021-10-04 11:39 | Electrocardiogram Report ---
Test Reason : Blood Pressure : / mmHG Vent. Rate : 151 BPM Atrial Rate : 138 BPM P-R Int : 000 ms QRS Dur : 134 ms QT Int : 302 ms P-R-T Axes : 000 068 -20 degrees QTc Int : 478 ms Atrial fibrillation with rapid ventricular response Right bundle branch block T wave abnormality, consider inferior ischemia Abnormal ECG No previous ECGs available Confirmed by Winston Sheldon ([id number]) on 10/04/2021 11:39:08 AM Referred By: ED Confirmed By:Jonathon Sheldon
[2021-10-04] MEDS: MAGNESIUM SULFATE / D5W 1 GM/100 ML BAG IV SCH ×2 (11:42→13:04)
[2021-10-04] MEDS ORDERED: METOPROLOL TARTRATE 25 MG TAB PO STA (12:12)
[2021-10-04] MEDS ORDERED: FUROSEMIDE 40 MG/4 ML VIAL IV ONE ×2 (13:43→22:11)
--- NOTE | 2021-10-04 13:48 | History & Physical Report ---
Date of Service October 04, 2021 Assessment & Plan (1) Atrial fibrillation: (2) Decompensated heart failure: Plan: Admit to telemetry Patient presenting by referral nephrology office for evaluation of tachycardia, shortness of breath, mild volume overload Patient diagnosed with atrial fibrillation on 09/28 in PCP office. At that time, carvedilol changed to metoprolol XL 25 mg daily and patient was started on Xarelto. Labs on 09/30 demonstrated worsening renal function and patient's losartan was reduced in half to 50 mg. In the ED, EKG shows atrial fibrillation rate 151 Patient received metoprolol 5 mg IV x 2 and metoprolol tartrate 25 mg PO with improvement in heart rate. Continue with metoprolol tartrate 25 mg PO q6h. Continue Xarelto. Seems to be mildly volume overloaded on exam and by history --will give Lasix 40 mg IV x 1 and reassess volume status Echo Cardiology consult (3) HTN (hypertension): Plan: BP borderline low at times, will hold home losartan and try maturing/HCTZ for no w while increasing metoprolol and diuresing (4) Stage 3b chronic kidney disease (CKD): Plan: Baseline creatinine runs in the high 1s Noted to be 1.8 today Monitor renal functions (5) UTI (urinary tract infection): Plan: Diagnosed with E. coli UTI on 09/16/2021 and given history of prostatitis, patient was placed on Cipro 500 mg BID for a 3 week course Discussed with [facility] [place] -- outpatient follow up appt will be arranged Continue Cipro until 10/06 to complete 3-week course (6) COPD, group C, by GOLD 2017 classification: Plan: No signs of acute exacerbation, continue home inhalers (7) DVT prophylaxis: Plan: On Xarelto History of Present Illness Chief Complaint: Shortness of breath Primary Care Provider: Robert Carbajal MD 76-year-old male with PMH dyslipidemia, COPD, HTN, CKD stage III, recent diagnosis of atrial fibrillation anticoagulant on Xarelto, and other problems listed below who presents the ED by 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 Patient reports that he has had intermittent illness since July. Was sick for about 3 weeks with an upper respiratory infection and severe cough. Patient did eventually recover. He was then diagnosed with a UTI on 09/16/2021 and placed on Cipro 500 mg BID. Given history of prostatitis, 3- week course was prescribed. Patient was seen by PCP on 09/28 had reported ongoing exertional shortness of breath. EKG was obtained which demonstrated atrial fibrillation. Patient's labetalol was switched to metoprolol and patient was started on Xarelto for anticoagulation. On 09/30, patient's losartan was reduced to 50 mg (from 100 mg) due to worsening renal function. Patient was seen in nephrology office today and reported ongoing shortness of breath, PND, and was felt to be mildly volume overloaded on exam, therefore was sent to the ED for further evaluation. Patient reports shortness of breath with minimal exertion. He reports one brief episode of atypical chest discomfort yesterday. No palpitations. Denies lightheadedness, dizziness, diaphoresis, syncopal events. Has lower extremity edema on exam, right greater than left, patient feels this is near his baseline. Patient reports waking up suddenly around 5 AM feeling short of breath. This improved with sitting up. No recent fevers or chills. Urinary symptoms improving with Cipro. Denies abdominal pain, nausea, vomiting, diarrhea. In the ED, EKG shows atrial fibrillation rate 151. Patient was given metoprolol 5 mg IV x 2 and metoprolol 25 mg PO -- heart rate improved in the 90s. Patient also received 1 L IVF. Labs show creatinine 1.86 (near baseline). Allergies Allergy/AdvReac Type Severity Reaction Status Date / Time Bactrim Allergy Mild Hives Verified 08/07/16 15:24 sulfamethoxazole Allergy Mild Hives Verified 10/04/21 11:18 trimethoprim Allergy Mild Hives Verified 10/04/21 11:18 Home Medications Medication Instructions Recorded Confirmed Type albuterol sulfate 90 mcg/actuation 2 puff INHALATION Q4 PRN 10/04/21 10/04/21 History aerosol inhaler aspirin 81 mg tablet,delayed 81 mg PO DAILY 10/04/21 10/04/21 History release atorvastatin 20 mg tablet 20 mg PO DAILY 10/04/21 10/04/21 History budesonide-formoterol HFA 160 2 puff INHALATION BID 10/04/21 10/04/21 History mcg-4.5 mcg/actuation aerosol inhaler (Symbicort) cholecalciferol (vitamin D3) 25 25 mcg PO DAILY 10/04/21 10/04/21 History mcg (1,000 unit) tablet (Vitamin D3) ciprofloxacin HCl 500 mg tablet 500 mg PO BID 10/04/21 10/04/21 History famotidine 40 mg tablet 40 mg PO DAILY 10/04/21 10/04/21 History losartan 100 mg tablet 50 mg PO DAILY 10/04/21 10/04/21 History metoprolol succinate 25 mg 25 mg PO DAILY 10/04/21 10/04/21 History tablet,extended release 24 hr prednisone 10 mg tablet 10 mg PO DIRECTED PRN 10/04/21 10/04/21 History rivaroxaban 20 mg tablet (Xarelto) 20 mg PO DAILY 10/04/21 10/04/21 History tiotropium bromide 18 mcg capsule 1 cap INHALATION DAILY 10/04/21 10/04/21 History with inhalation device (Spiriva with HandiHaler) tramadol 50 mg tablet 50 mg PO Q6H PRN 10/04/21 10/04/21 History triamcinolone acetonide 0.1 % 1 applic TOPICAL BID PRN 10/04/21 10/04/21 History topical cream triamterene 75 1 tab PO DAILY 10/04/21 10/04/21 History mg-hydrochlorothiazide 50 mg tablet Past Med/Surg History Medical History Atrial fibrillation BPH (benign prostatic hyperplasia) COPD, group C, by GOLD 2017 classification Dyslipidemia GERD (gastroesophageal reflux disease) HTN (hypertension) Hx of melanoma of skin SILVERMAN (nonalcoholic steatohepatitis) Prostatitis Stage 3b chronic kidney disease (CKD) Surgical History No significant past surgical history Family History Denies family history of Heart disease Kidney disease Social History (Updated 10/04/21 @ 13:58 by FIORDALIZA Chris) Smoking Status: Former smoker Smoking End Date: 24 years ago; Hx Alcohol Use: No Hx Substance Use: No Preferred Language: Singaporean Communication Ability: Effective Supervisor Cutting Department Required: No Beliefs That Will Affect Care: None Current Living Situation: Spouse Other Information That Helps Us Care for You: No Feels Safe at Home: Yes Safety Concerns: Feels Safe At This Time Assistive Devices: Cane and Glasses Review of Systems Review of Systems: ROS per HPI, all other systems reviewed and negative Physical Exam Constitutional: WD/WN, vitals as above + obese Eyes: PERRL, conjunctivae normal, anicteric sclerae ENMT: external ear and nose normal, oropharynx normal Respiratory: normal respiratory effort; no respiratory distress Auscultation: + diminished lung sounds Cardiovascular: Rate/Rhythm: regular rate and + irregularly irregular Vessels: normal peripheral pulses Extremities: + edema (+1-2 pitting edema BLE, right greater than left) Gastrointestinal (Abdomen): normal bowel sounds, soft, nontender, no hepatosplenomegaly Musculoskeletal: no cyanosis or clubbing, extremities motor strength 5/5 Skin: no rashes, warm and dry Neurologic: PERRL, EOMI, accommodation nl, no face palsy, no dysarthria Psychiatric: A+Ox3, euthymic affect Results & Data Results & Data ([facility]) Vital Signs (Past 12 Hours) Vital Signs Temp Pulse Pulse Resp BP BP Pulse Ox 10/04/21 13:30 107 H 18 131/75 96 10/04/21 13:00 102 H 18 119/83 97 10/04/21 12:10 92 H 18 97 10/04/21 12:00 99 H 18 119/89 97 10/04/21 11:45 102 H 18 116/71 95 10/04/21 11:15 114 H 18 122/87 95 10/04/21 11:05 117 H 18 119/85 95 10/04/21 10:45 137 H 18 135/97 97 10/04/21 10:31 156 H 17 135/97 97 10/04/21 10:30 143 H 12 97 10/04/21 10:26 140 H 19 143/85 H 10/04/21 10:08 36.5 C 121 H 22 149/98 H 97 Laboratory Results Short CBC 10/04/21 Range/Units 10:20 WBC 5.61 (4.8-10.8) K/uL Hgb 13.8 L (14.0-18.0) g/dL Hct 41.7 L (42-52) % Plt Count 387 (130-400) K/uL BMP 10/04/21 10:20 Sodium 137 Potassium 4.3 Chloride 104 Carbon Dioxide 24 BUN 33 H Creatinine 1.86 H Glucose 106 H Calcium 9.5 Liver Function 10/04/21 Range/Units 10:20 Total Bilirubin 1.0 (0.2-1.0) mg/dl AST 35 (13-39) U/L ALT 73 H (7-52) U/L Alkaline Phosphatase 69 (34-104) U/L Albumin 3.8 (3.4-5.0) gm/dl Diagnostic Findings Chest X-Ray 10/04/21 10:24 SINGLE VIEW CHEST CLINICAL HISTORY: Atypical chest pain. Dyspnea FINDINGS: An AP, portable, upright chest radiograph is compared to study dated 08/07/2016. The heart is enlarged noting atherosclerotic calcification of the thoracic aorta. The pulmonary vasculature is noncongested. Emphysematous changes suspected. Airspace opacities are seen in the mid to lower lungs. No large pleural effusion or pneumothorax is identified. The skeletal structures are osteopenic. The bony thorax is grossly intact. IMPRESSION: 1. Cardiomegaly and suspect emphysema. There is no radiographic evidence of congestive failure. 2. Bibasilar opacities likely represent scarring/atelectasis. Correlate clinically for evidence of a superimposed infectious/inflammatory pneumonitis ACT 112: Negative or not required by law. Electronically signed by: Babatunde Kirkpatrick M.D. 10/04/2021 10:38 AM Code Status & VTE Plan Code Status Patient is a full code as per my discussion with him. VTE Prophylaxis Plan VTE Prophylaxis will be ordered: No Supervising Physician Co-Signing Physician Notes Patient was seen and examined independently at bedside, in presence of . Case discussed with Lesvia MANCERA and agree with the documentation above. In summary, this is a 76 year old male with history of COPD who presented to the ED from nephrology office for Afib with RVR and low BP. Patient states he has been having SONI for over a month which did not improve despite being treated for COPD at an outside hospital. Also has been on 3 week course of Cipro for UTI/?prostatitis per his urology until 10/14. He was recently diagnosed with Afib at his PCP office visit 09/28 (EKG 07/26/21 was NSR; so likely converted to Afib in between) and was started on toprol 25 mg (in place of his coreg). He was started on xarelto and Echo was ordered which has not been done yet. This morning he had an early appointment with nephro and had not taken any of his meds including toprol. In the ED, he was afebrile, hemodynamically stable, EKG with Afib with HR of 151 and was given iv lopressor x2 along with po lopressor. His HR was in 100s-120s during my encounter. He feels fine at rest but has ongoing SONI. he is on room air. Also has chronic LE edema which seems dependent, as it is better when he wakes up in the morning- he uses stocking and maxzide. Chest fairly clear, heart irregularly irregular, abdomen benign, AAOx3. Will admit to PCU on tele for his Afib with RVR. Will continue po lopressor, increased dose. Will hold losartan to allow for more rate control if needed. Continue xarelto. Will get echo, consult cardio- might need LUZ guided cardioversion during this admission given his symptomatic Afib with SONI vs OP CV after 3 weeks of anticoagulation- will defer to cardio. Agree with iv lasix x1 today given his 2+ LE edema- can resume maxzide from tomorrow. His renal function seems stable (baseline Cr seems to be 1.6-2 and was 2.3 as OP recently but 1.86 today). Continue cipro to complete course as per his urology. His COPD is stable and not in exacerbation- continue home inhalers. Rest per the note above.
[2021-10-04] MEDS ORDERED: ACETAMINOPHEN 325 MG TAB PO PRN (14:27)
[2021-10-04] MEDS ORDERED: traMADol HCL 50 MG TABLET PO PRN (14:27)
[2021-10-04 15:14] LABS: Appearance Urine Cloudy (Clear); Bacteria Urine Automated Negative (Negative); Bilirubin Urine Negative (Negative); Blood Urine Negative (Negative); Color Urine Yellow; Glucose Urine UA Negative (Negative); Ketones Urine Negative (Negative); Leukocyte Esterase Urine Negative (Negative); Nitrite Urine Negative (Negative); Protein Urine Negative (Negative); RBC Urine Automated 0-4 /hpf (0-4); Specific Gravity Urine 1.012 (1.000-1.030); Urobilinogen Urine Negative (Negative)
--- NOTE | 2021-10-04 16:21 | Cardiology Consultation ---
Date of Consultation October 04, 2021 Assessment & Plan (1) Osteoarthritis of right hip: (2) Atrial fibrillation with rapid ventricular response: (3) Decompensated heart failure: (4) Stage 3b chronic kidney disease (CKD): (5) HTN (hypertension): (6) COPD, group C, by GOLD 2017 classification: (7) Dyslipidemia: (8) BPH (benign prostatic hyperplasia): It was my pleasure to see Mr. Dorsey in cardiac consultation today. The pathophysiology and treatment options for atrial fibrillation with rapid ventricular response and likely acute diastolic decompensation were discussed with him at great length today. He is already been started on Xarelto and metoprolol as an outpatient and tolerating them both well. At this point, I think he would benefit from another full day of diuresis and then likely proceed with LUZ guided cardioversion on 10/06/2021. They are both in agreement of this. His Xarelto can be continued uninterrupted. His metoprolol has been changed to tartrate 25 mg p.o. every 6 and p.o. or IV Cardizem may be used as well if necessary for further rate control. Echocardiogram to be performed. History of Present Illness Reason for Consultation: SOB Requesting Physician: FIORDALIZA Chris Attending Physician: Tony Roa MD History of Present Illness It was my pleasure to see Mr. Dorsey in cardiac consultation today October 04, 2021. He is a very pleasant 76-year-old gentleman who was directed to the emergency department today after being seen in follow-up with nephrology and found to be be experiencing severe dyspnea with exertion. He was recently seen by PCP for evaluation of hip pain but found to be in A. fib with rapid ventricular response at that time. During that visit he was placed on Xarelto and his carvedilol was changed to metoprolol. Clinically, he states he has been experiencing progressive shortness of breath with exertion for the last several weeks. He notes that he had a severe influenza-like illness in July and his shortness of breath never really improved. Note, he is also been having a great deal of hip pain since before the pandemic and has put off being seen by orthopedic surgery. He is finally scheduled to see Dr. Lucero in 1 month as an outpatient. Allergies Allergy/AdvReac Type Severity Reaction Status Date / Time Bactrim Allergy Mild Hives Verified 08/07/16 15:24 sulfamethoxazole Allergy Mild Hives Verified 10/04/21 11:18 trimethoprim Allergy Mild Hives Verified 10/04/21 11:18 Home Medications Medication Instructions Recorded Confirmed Type albuterol sulfate 90 mcg/actuation 2 puff INHALATION Q4 PRN 10/04/21 10/04/21 History aerosol inhaler aspirin 81 mg tablet,delayed 81 mg PO DAILY 10/04/21 10/04/21 History release atorvastatin 20 mg tablet 20 mg PO DAILY 10/04/21 10/04/21 History budesonide-formoterol HFA 160 2 puff INHALATION BID 10/04/21 10/04/21 History mcg-4.5 mcg/actuation aerosol inhaler (Symbicort) cholecalciferol (vitamin D3) 25 25 mcg PO DAILY 10/04/21 10/04/21 History mcg (1,000 unit) tablet (Vitamin D3) ciprofloxacin HCl 500 mg tablet 500 mg PO BID 10/04/21 10/04/21 History famotidine 40 mg tablet 40 mg PO DAILY 10/04/21 10/04/21 History losartan 100 mg tablet 50 mg PO DAILY 10/04/21 10/04/21 History metoprolol succinate 25 mg 25 mg PO DAILY 10/04/21 10/04/21 History tablet,extended release 24 hr prednisone 10 mg tablet 10 mg PO DIRECTED PRN 10/04/21 10/04/21 History rivaroxaban 20 mg tablet (Xarelto) 20 mg PO DAILY 10/04/21 10/04/21 History tiotropium bromide 18 mcg capsule 1 cap INHALATION DAILY 10/04/21 10/04/21 History with inhalation device (Spiriva with HandiHaler) tramadol 50 mg tablet 50 mg PO Q6H PRN 10/04/21 10/04/21 History triamcinolone acetonide 0.1 % 1 applic TOPICAL BID PRN 10/04/21 10/04/21 History topical cream triamterene 75 1 tab PO DAILY 10/04/21 10/04/21 History mg-hydrochlorothiazide 50 mg tablet Patient History Medical History Atrial fibrillation BPH (benign prostatic hyperplasia) COPD, group C, by GOLD 2017 classification Dyslipidemia GERD (gastroesophageal reflux disease) HTN (hypertension) Hx of melanoma of skin SILVERMAN (nonalcoholic steatohepatitis) Prostatitis Stage 3b chronic kidney disease (CKD) Surgical History No significant past surgical history Family History Denies family history of Heart disease Kidney disease Social History Smoking Status: Former smoker Smoking End Date: 24 years ago; Hx Alcohol Use: No Hx Substance Use: No Preferred Language: Uzbek Communication Ability: Effective Human Services Manager Required: No Beliefs That Will Affect Care: None Current Living Situation: Spouse Other Information That Helps Us Care for You: No Feels Safe at Home: Yes Safety Concerns: Feels Safe At This Time Assistive Devices: Cane and Glasses Review of Systems Review of Systems: All systems reviewed & are unremarkable except as noted in HPI & below Physical Exam Physical Exam: General: Awake, alert and oriented x 3. No acute distress. HEENT: Normocephalic, atraumatic. Pupils equal, round and reactive to light and accommodation. Extraocular muscles are intact. Anicteric sclera. Moist mucous membranes. Neck: No JVD. No bruit. Cardiovascular: irregularly irregular, unable to appreciate murmur, rub or gallop. Pulmonary: Clear to auscultation bilaterally. No rales, rhonchi, or wheezing. Abdomen: Bowel sounds x 4, soft. No rebound, guarding or tenderness. No organomegaly. Extremities: No clubbing, cyanosis or edema. +2 pedal pulses bilaterally. Skin: Warm and dry. Results & Data ([facility]) Vital Signs (Past 12 Hours) Vital Signs Temp Pulse Pulse Resp BP BP Pulse Ox 10/04/21 14:06 36.4 C L 88 20 147/82 H 96 10/04/21 13:51 104 H 18 97 10/04/21 13:30 107 H 18 131/75 96 10/04/21 13:00 102 H 18 119/83 97 10/04/21 12:10 92 H 18 97 10/04/21 12:00 99 H 18 119/89 97 10/04/21 11:45 102 H 18 116/71 95 10/04/21 11:15 114 H 18 122/87 95 10/04/21 11:05 117 H 18 119/85 95 10/04/21 10:45 137 H 18 135/97 97 10/04/21 10:31 156 H 17 135/97 97 10/04/21 10:30 143 H 12 97 10/04/21 10:26 140 H 19 143/85 H 10/04/21 10:08 36.5 C 121 H 22 149/98 H 97
[2021-10-04] MEDS ORDERED: RIVAROXABAN 20 MG TAB PO SCH (16:30)
[2021-10-04] MEDS: METOPROLOL TARTRATE 25 MG TAB PO SCH ×2 (17:17→23:32)
[2021-10-04] MEDS: ATORVASTATIN 20 MG TAB PO SCH (20:11)
[2021-10-04] MEDS: CIPROFLOXACIN 500 MG TAB PO SCH (20:12)
[2021-10-05] MEDS: METOPROLOL TARTRATE 25 MG TAB PO SCH ×4 (05:59→23:12)
--- NOTE | 2021-10-05 06:08 | Orthopedic Consultation ---
Date of Service October 05, 2021 Assessment & Plan (1) Osteoarthritis of right hip: He has been dealing with severe osteoarthritis of the right hip. I talked to him about the diagnosis and treatment options at bedside today. I think he would do best with a right total hip arthroplasty. He is currently being treated for atrial fibrillation and will likely remain on Xarelto. I will put him on my operative schedule for november. I will have my staff give him a call and get him in to see me soon for preoperative paperwork and formal x-rays. I will leave it up to his molten iron pourer to determine if a hip replacement in mid November is reasonable with his new onset of atrial fibrillation. History of Present Illness Reason for Consultation: Advanced osteoarthritis of the right hip. Requesting Physician: . Attending Physician: Tony Rao MD Conner is a pleasant 76-year-old male who was recently admitted for atrial fibrillation. He has been dealing with chronic right hip pain. Its been more severe recently. It is really affecting his daily activities. He has trouble walking long distances. He has trouble bending over. He had x-rays with his primary care physician that showed severe osteoarthritis of the right hip. He had an appointment to see me in the office in about a month. Orthopedics was consulted to evaluate his severe right hip pain. Allergies Allergy/AdvReac Type Severity Reaction Status Date / Time Bactrim Allergy Mild Hives Verified 08/07/16 15:24 sulfamethoxazole Allergy Mild Hives Verified 10/04/21 11:18 trimethoprim Allergy Mild Hives Verified 10/04/21 11:18 Home Medications Medication Instructions Recorded Confirmed Type albuterol sulfate 90 mcg/actuation 2 puff INHALATION Q4 PRN 10/04/21 10/04/21 History aerosol inhaler aspirin 81 mg tablet,delayed 81 mg PO DAILY 10/04/21 10/04/21 History release atorvastatin 20 mg tablet 20 mg PO DAILY 10/04/21 10/04/21 History budesonide-formoterol HFA 160 2 puff INHALATION BID 10/04/21 10/04/21 History mcg-4.5 mcg/actuation aerosol inhaler (Symbicort) cholecalciferol (vitamin D3) 25 25 mcg PO DAILY 10/04/21 10/04/21 History mcg (1,000 unit) tablet (Vitamin D3) ciprofloxacin HCl 500 mg tablet 500 mg PO BID 10/04/21 10/04/21 History famotidine 40 mg tablet 40 mg PO DAILY 10/04/21 10/04/21 History losartan 100 mg tablet 50 mg PO DAILY 10/04/21 10/04/21 History metoprolol succinate 25 mg 25 mg PO DAILY 10/04/21 10/04/21 History tablet,extended release 24 hr prednisone 10 mg tablet 10 mg PO DIRECTED PRN 10/04/21 10/04/21 History rivaroxaban 20 mg tablet (Xarelto) 20 mg PO DAILY 10/04/21 10/04/21 History tiotropium bromide 18 mcg capsule 1 cap INHALATION DAILY 10/04/21 10/04/21 History with inhalation device (Spiriva with HandiHaler) tramadol 50 mg tablet 50 mg PO Q6H PRN 10/04/21 10/04/21 History triamcinolone acetonide 0.1 % 1 applic TOPICAL BID PRN 10/04/21 10/04/21 History topical cream triamterene 75 1 tab PO DAILY 10/04/21 10/04/21 History mg-hydrochlorothiazide 50 mg tablet Past Med/Surg History Medical History Atrial fibrillation BPH (benign prostatic hyperplasia) COPD, group C, by GOLD 2017 classification Dyslipidemia GERD (gastroesophageal reflux disease) HTN (hypertension) Hx of melanoma of skin SILVERMAN (nonalcoholic steatohepatitis) Prostatitis Stage 3b chronic kidney disease (CKD) Surgical History No significant past surgical history Family History Denies family history of Heart disease Kidney disease Social History Smoking Status: Former smoker Smoking End Date: 24 years ago; Hx Alcohol Use: No Hx Substance Use: No Preferred Language: Panamanian Communication Ability: Effective 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 Physical Exam On physical examination the right hip, the leg lengths are equal. I can flex him to about 80 degrees. He has 30 degrees of external rotation 10 degrees of internal rotation. He has significant pain at end ranges of motion. A lot of pain in his groin.. Constitutional WD/WN, vitals as above Eyes PERRL, conjunctivae normal, anicteric sclerae ENMT external ear and nose normal, oropharynx normal Neck trachea midline, no thyromegaly Respiratory normal respiratory effort Cardiovascular RRR, no murmur, no edema Gastrointestinal (Abdomen) normal bowel sounds, soft, nontender, no hepatosplenomegaly Psychiatric A+Ox3, euthymic affect Results & Data Results & Data Laboratory Results . Diagnostic Findings . PG Care Time/CCT Total # of Minutes Spent Total Time Spent with Patient: Total time spent is greater than 50% in coordination of care (as documented) at patient's floor/unit and/or counseling patient: Coding Level of Care Code 74188 Inpt Consult Level 4 Diagnoses Osteoarthritis of right hip M16.11
[2021-10-05 07:02] LABS: Hematocrit (blood only) 40.9 % (42-52); Hemoglobin 13.4 g/dL (14.0-18.0); Mean Corpuscular Hemoglobin 29.8 pg (25-34); Mean Corpuscular Hgb Conc 32.8 g/dL (32-36); Mean Corpuscular Volume 90.9 fL (80-100); Mean Platelet Volume 9.7 fL (7.4-10.4); Platelet Count 358 K/uL (130-400); RDW Coefficient of Variation 15.2 % (11.5-14.5); RDW Standard Deviation 50.8 fL (36.4-46.3); White Blood Count 5.33 K/uL (4.8-10.8)
[2021-10-05 07:31] LABS: BUN Creatinine Ratio 16.2 (10-20); Calcium 9.1 mg/dl (8.5-10.1); Creatinine Clr Calc Pharmacy 43.3 ml/min; Est GFR (African American) 33.7 ml/min; Est GFR (Non-African American) 29.1 ml/min; Magnesium 1.7 mg/dl (1.7-2.4); Potassium 3.4 mmol/L (3.5-5.1)
[2021-10-05] MEDS: CIPROFLOXACIN 500 MG TAB PO SCH ×2 (08:23→20:17)
[2021-10-05] MEDS: CHOLECALCIFEROL 1,000 UNITS 25 MCG TAB PO SCH (08:23)
[2021-10-05] MEDS: ASPIRIN 81 MG ECTAB PO SCH (08:23)
[2021-10-05] MEDS: FAMOTIDINE 40 MG TABLET PO SCH (08:23)
[2021-10-05] MEDS: UMECLIDINIUM BROMIDE 62.5MCG/BLISTER 7 PUFFS/INHALER INH SCH (08:24)
[2021-10-05] MEDS: FLUTICASONE/VILANTEROL 200/25MCG 14 PUFFS/INHALER INH SCH (08:24)
[2021-10-05] MEDS ORDERED: POTASSIUM CHLORIDE CRTAB 20 MEQ TABCR PO STA (08:45)
[2021-10-05] MEDS ORDERED: FUROSEMIDE 40 MG/4 ML VIAL IV SCH (09:00)
[2021-10-05] MEDS ORDERED: ATORVASTATIN 20 MG TAB PO SCH (09:00)
[2021-10-05] MEDS: MAGNESIUM SULFATE / D5W 1 GM/100 ML BAG IV SCH ×2 (10:56→12:46)
--- NOTE | 2021-10-05 13:18 | Cardiology Progress Note ---
Date of Service October 05, 2021 Assessment & Plan (1) Osteoarthritis of right hip: (2) Atrial fibrillation with rapid ventricular response: (3) Decompensated heart failure: (4) Stage 3b chronic kidney disease (CKD): (5) HTN (hypertension): (6) COPD, group C, by GOLD 2017 classification: (7) Dyslipidemia: (8) BPH (benign prostatic hyperplasia): Plan: It was my pleasure to see Mr. Dorsey in cardiac consultation today. The pathophysiology and treatment options for atrial fibrillation with rapid ventricular response and likely acute diastolic decompensation were discussed with him at great length today. He is already been started on Xarelto and metoprolol as an outpatient and tolerating them both well. Renal function with slight decline from baseline. Patient no longer examines as volume overloaded. We will hold Lasix for now. Replete electrolytes. N.p.o. after midnight for LUZ cardioversion in the a.m. Admission and Anticipated Discharge Date Admission Date: October 04, 2021 Subjective Patient seen and examined, chart reviewed. Also spoke with the patient's by phone. States he is feeling much better today and notes that shortness of breath has resolved. Denies any chest pain, palpitations or lightheadedness. Patient states he is very grateful to be seen by orthopedic surgery today. Telemetry reviewed: Review of Systems Review of Systems: All systems reviewed & are unremarkable except as noted in HPI & below Physical Exam Physical Exam: General: Awake, alert and oriented x 3. No acute distress. HEENT: Normocephalic, atraumatic. Pupils equal, round and reactive to light and accommodation. Extraocular muscles are intact. Anicteric sclera. Moist mucous membranes. Neck: No JVD. No bruit. Cardiovascular: irregularly irregular, unable to appreciate murmur, rub or gallop. Pulmonary: Clear to auscultation bilaterally. No rales, rhonchi, or wheezing. Abdomen: Bowel sounds x 4, soft. No rebound, guarding or tenderness. No orga nomegaly. Extremities: No clubbing, cyanosis or edema. +2 pedal pulses bilaterally. Skin: Warm and dry. Results & Data ([facility]) Vital Signs (Past 12 Hours) Vital Signs Temp Pulse Pulse Resp BP Pulse Ox 10/05/21 11:08 36.5 C 86 20 111/73 96 10/05/21 10:28 99 H 10/05/21 06:42 36.5 C 89 18 128/76 97 10/05/21 05:58 88 145/94 H 10/05/21 03:05 36.4 C L 84 18 113/76 98
[2021-10-05] MEDS: MAGNESIUM OXIDE 400 MG TAB PO SCH ×2 (13:31→20:17)
--- NOTE | 2021-10-05 14:54 | Electrocardiogram Report ---
Test Reason : Blood Pressure : / mmHG Vent. Rate : 099 BPM Atrial Rate : 098 BPM P-R Int : 000 ms QRS Dur : 140 ms QT Int : 394 ms P-R-T Axes : 000 091 014 degrees QTc Int : 505 ms Atrial fibrillation Right bundle branch block Abnormal ECG When compared with ECG of 04-OCT-2021 10:19, Vent. rate has decreased BY 52 BPM T wave inversion less evident in Inferior leads Confirmed by Winston Sheldon ([id number]) on 10/05/2021 2:54:11 PM Referred By: Chio Palumbo Confirmed By:Jonathon Sheldon
--- NOTE | 2021-10-05 15:37 | Consultation Report ---
NEPHROLOGY CONSULTATION DATE OF CONSULTATION NOTE: 10/05/2021. REASON FOR CONSULTATION: Acute renal failure on background CKD with congestive heart failure/AFib. HISTORY OF PRESENT ILLNESS: The patient is a 76-year-old male who is followed closely by Dr. Chio vuong. In fact, he had a clinic visit yesterday with Dr. Palumbo where he was found to have conge stive heart failure, AFib, and was sent over to the Emergency Department for further management and a dmission. He presented to the Emergency Department feeling tachycardic, short of breath and was in a trial fibrillation. Since then, he has been seen by Cardiology and is currently getting Lasix intrav enous. With that he is making a lot of urine. The patient has been struggling with this issue of at rial fibrillation for the last few weeks and with that, his creatinine as an outpatient has worsened. Before the AFib, he had a creatinine baseline of 1.6, but lately it has been running in the 2 range . In the Emergency Department yesterday it was 1.9, this morning was 2.2. He feels somewhat better a fter good diuresis. His heart rate is more controlled now and his blood pressure is still reasonable . He does not have any urinary complaints and he is urinating a lot of urine. Magnesium was slightl y low and he is getting IV magnesium, currently getting Lasix 40 mg IV twice daily. ALLERGIES: LIST REVIEWED AND INCLUDES BACTRIM. MEDICATIONS: Home medication list was reviewed in detail and is as per the reconciliation list. He is on losartan 50 daily, dose of which was lowered just recently, also takes aspirin, Lipitor, Symbic ort, albuterol inhaler, Spiriva HandiHaler, tramadol, Maxzide daily, metoprolol 25 daily, famotidine, ciprofloxacin 500 twice daily for recent urinary tract infection and the course will be completed to danielle. PAST MEDICAL AND SURGICAL HISTORY: Includes a history of atrial fibrillation, benign prostatic hyper plasia, COPD, dyslipidemia, hypertension, GERD, history of skin melanoma, history of nonalcoholic dion atohepatitis, history of prostatitis, stage IIIB chronic kidney disease with baseline creatinine usua lly 1.6, but in the last few weeks it has worsened and creatinine is running in the low 2s. Surgical history none. FAMILY HISTORY: Negative for renal disease or dialysis. SOCIAL HISTORY: The patient is a former smoker. He is and lives with his spouse. He does n ot have to use oxygen at home. 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 REVIEW OF SYSTEMS: Positive for shortness of breath, orthopnea, some increased swelling in the leg a nd some chest discomfort with feeling of palpitation. Otherwise, 12 systems reviewed and negative. PHYSICAL EXAMINATION: GENERAL: Elderly white male who does appear to be in some mild respiratory distress. He is awake, a lert, oriented and able to give me a detailed account of his medical problem. HEENT: Mucous membrane is moist. NECK: Supple. No jugular venous distention. CHEST: Bilateral decreased breath sounds, occasional crackles. CARDIOVASCULAR: S1 and S2, regular. Soft systolic murmur heard. ABDOMEN: Soft, nontender. EXTREMITIES: Show trace edema. NEUROLOGIC: Awake, alert and oriented. Normal speech. Moving all 4 extremities. VITAL SIGNS: Includes blood pressure 111/73, pulse rate is 86, temperature 36.5, oxygen saturation 9 6% on room air. LABORATORY TEST: Blood work from this morning shows sodium 138, potassium 3.4, BUN 35, creatinine is 2.16, calcium 9.1, magnesium 1.7. On admission yesterday, he had a creatinine of 1.9. His more rece nt blood work shows creatinine of 2.3 and 2.0, but prior to that was 1.6 for some time. Chest x-ray shows cardiomegaly with some emphysema, but no clear evidence of congestive heart failure. Urine soledad t was bland with negative blood, negative protein and fairly bland urine sediment. ASSESSMENT AND PLAN: A 76-year-old male with a history of chronic kidney disease with a prior baseli ne creatinine of 1.6, but lately it is running in the low 2s coinciding with recent worsening of his cardiac status. I have been consulted for acute renal failure on chronic [facility]. Acute renal failure. The acute component is pretty low. However, as stated earlier, his baseline cr eatinine used to be 1.6 when his cardiac status was stable. For the last few weeks, [facility] with heart rate, atrial fibrillation and congestive heart failure and baseline creatinine h as gone up in the low 2 range. At this point, his creatinine is 2.1, which is similar to his recent outpatient creatinine. It is not surprising to have some worsening in his renal function in the sett ing of heart failure and new onset worsening of atrial fibrillation. He does have some evidence of d iastolic congestive heart failure and I agree with using IV Lasix 40 twice daily. He is responding p retty well with the Lasix and already starting to feel somewhat better from a breathing standpoint. Prior to hospitalization, he was on Maxzide, which I will stop and use Lasix going forward. I agree with supplementing magnesium and potassium given ongoing diuresis. No further workup is needed for t he etiology of chronic kidney disease as well as acute kidney injury as the etiology is obvious at th is point. Avoid NSAIDs, which he used to take in the past, but not for the last few years. Avoid ne phrotoxic drugs, antibiotics, contrast agents. Maintain good hemodynamic support with good heart rat e and blood pressure. As long as we achieve that I expect his renal function to stabilize and not si gnificantly worsen. Thank you very much for the consult. Job ID: [id number]
[2021-10-05] MEDS ORDERED: RIVAROXABAN 15 MG TAB PO SCH (16:30)
--- NOTE | 2021-10-05 19:18 | Hospitalist Progress Note ---
Date of Service October 05, 2021 Assessment & Plan (1) Atrial fibrillation with rapid ventricular response: Plan: (1) Atrial fibrillation, RVR (2) Decompensated heart failure: Likely acute diastolic decompensation 2/2 Afib rvr. Continue to monitor in telemetry. Patient presenting 10/04 by referral nephrology office for evaluation of tachycardia, shortness of breath, mild volume overload Patient diagnosed with atrial fibrillation on 09/28 in PCP office. At that time, carvedilol changed to metoprolol XL 25 mg daily and patient was started on Xarelto. Labs on 09/30 demonstrated worsening renal function and patient's losartan was reduced in half to 50 mg. In the ED, EKG shows atrial fibrillation rate 151. 10/04 ECHO reviewed. s/p lasix and iv metoprolol. Replete and monitor electrolytes. No crackles on exam, 1+ BLE edema. Lasix stopped. Improving breathing. Patient progressing towards euvolemic. HR better. Slightly elevated renal function Cardiology on board, appreciate recommendations. N.p.o. midnight for LUZ cardioversion in the a.m. #. Acute on chronic stage III renal failure Baseline creatinine runs around 1.6, noted to be 1.8 at admission Minimally elevated creatinine today, BMP in AM. Nephrology on board, appreciate recommendation. Lasix stopped. Avoid NSAIDs/Contrast/other nephrotoxics. Monitor and replete electrolytes #. Other chronic medical conditions: HTN, COPD Blood pressure fairly WNL. Continue with/resume home meds as and when appropriate. #. UTI Diagnosed with E. coli UTI on 09/16/2021 and given history of prostatitis, patient was placed on Cipro 500 mg BID for a 3 week course Prior team Discussed with [facility] -- outpatient follow up appt will be arranged Continue Cipro until 10/06 to complete 3-week course #. DVT prophylaxis: Patient on Xarelto Disposition: For LUZ cardioversion tomorrow. Admission and Anticipated Discharge Date Admission Date: October 04, 2021 Subjective Patient seen and examined as a follow-up of recent diagnosis of A. fib and decompensated heart failure at bedside. Patient was lying in bed, on room air, NAD, no new acute events overnight per patient. Patient reports eating and moving bowels okay. Patient denies any fever/headache/chills/chest pain/shortness of breath/other review of symptoms. Patient reports feeling better. Physical Exam Physical Exam: GENERAL: Alert and oriented x3. NAD, on RA. Morbidly obese. HEENT: No pallor, no icterus. Pupils equal, round and reactive to light. Oral mucosa moist. NECK: No JVD, no neck masses. HEART: S1 and S2 heard. irregular rate and rhythm. No murmur, no gallop. RESPIRATORY SYSTEM: Normal AP diameter. No accessory muscle use. No wheezing, no crackles. decreased breath sounds b/b. ABDOMEN: Soft, bowel sounds present, nontender, no distention. CENTRAL NERVOUS SYSTEM: No facial droop. Speech is clear. Obeys simple commands. Moves extremities. EXTREMITIES: 1+ BLE edema, no erythema seen. Results & Data Results & Data ([facility]) Vital Signs (Past 12 Hours) Vital Signs Temp Pulse Pulse Resp BP Pulse Ox 10/05/21 16:09 94 H 10/05/21 15:58 36.6 C 51 L 18 112/73 95 10/05/21 11:08 36.5 C 86 20 111/73 96 10/05/21 10:28 99 H
[2021-10-05] MEDS: ATORVASTATIN 20 MG TAB PO SCH (20:15)
[2021-10-05] MEDS: POTASSIUM CHLORIDE CRTAB 20 MEQ TABCR PO SCH (20:16)
[2021-10-06] MEDS: METOPROLOL TARTRATE 25 MG TAB PO SCH ×2 (05:49→11:44)
[2021-10-06 06:43] LABS: Hematocrit (blood only) 39.7 % (42-52); Hemoglobin 13.3 g/dL (14.0-18.0); Mean Corpuscular Hemoglobin 30.7 pg (25-34); Mean Corpuscular Hgb Conc 33.5 g/dL (32-36); Mean Corpuscular Volume 91.7 fL (80-100); Platelet Count 343 K/uL (130-400); RDW Coefficient of Variation 14.9 % (11.5-14.5); RDW Standard Deviation 50.4 fL (36.4-46.3); Red Blood Count 4.33 M/uL (4.7-6.1); White Blood Count 5.28 K/uL (4.8-10.8)
[2021-10-06 06:58] LABS: BUN Creatinine Ratio 17.5 (10-20); Creatinine Clr Calc Pharmacy 44.1 ml/min; Est GFR (African American) 35.7 ml/min; Est GFR (Non-African American) 30.8 ml/min; Phosphorus 3.9 mg/dl (2.5-4.9); Potassium 3.7 mmol/L (3.5-5.1)
[2021-10-06] MEDS: FLUTICASONE/VILANTEROL 200/25MCG 14 PUFFS/INHALER INH SCH (08:28)
[2021-10-06] MEDS: UMECLIDINIUM BROMIDE 62.5MCG/BLISTER 7 PUFFS/INHALER INH SCH (08:28)
[2021-10-06] MEDS: POTASSIUM CHLORIDE CRTAB 20 MEQ TABCR PO SCH (08:29)
[2021-10-06] MEDS: ASPIRIN 81 MG ECTAB PO SCH (08:29)
[2021-10-06] MEDS: CHOLECALCIFEROL 1,000 UNITS 25 MCG TAB PO SCH (08:29)
[2021-10-06] MEDS: CIPROFLOXACIN 500 MG TAB PO SCH (08:29)
[2021-10-06] MEDS: FAMOTIDINE 40 MG TABLET PO SCH (08:29)
[2021-10-06] MEDS: MAGNESIUM OXIDE 400 MG TAB PO SCH (08:29)
[2021-10-06] MEDS ORDERED: POTASSIUM CHLORIDE CRTAB 20 MEQ TABCR PO SCH (09:00)
--- NOTE | 2021-10-06 09:03 | Pre Anesthesia Assessment ---
Date of Service October 06, 2021 Pre Sedation Assessment Vital Signs Temp Pulse Pulse Pulse Resp BP Pulse Ox 10/06/21 08:25 36.4 C L 97 H 18 121/84 97 10/06/21 07:27 88 10/06/21 05:45 67 133/78 10/06/21 03:38 36.4 C L 86 16 126/77 93 10/05/21 23:10 36.5 C 68 18 102/68 95 10/05/21 22:17 98 H 10/05/21 19:00 36.5 C 114 H 20 125/77 94 10/05/21 16:09 94 H 10/05/21 15:58 36.6 C 51 L 18 112/73 95 10/05/21 11:08 36.5 C 86 20 111/73 96 10/05/21 10:28 99 H Pre-Sedation Airway Assessment Smoking Status: Former smoker Notes The planned sedation has been discussed with the patient. Informed Consent was obtained. I have identified the patient, determined the appropriateness of sedation and have assessed the patient immediately prior to the procedure. All medicine(s) and interventions are by my order.
[2021-10-06] MEDS ORDERED: BENZOCAINE/TETRACAIN/BUTAM 50 APPLN/5 GM CAN EXT ONE (09:19)
[2021-10-06] MEDS ORDERED: MIDAZOLAM HCL 5 MG/ML 1 ML VIAL ONE (09:19)
[2021-10-06] MEDS ORDERED: fentaNYL citrate 100 MCG/2 ML VIAL ONE ×2 (09:19→09:24)
--- NOTE | 2021-10-06 10:13 | Post Anesthesia Assessment ---
Date of Service October 06, 2021 Post Sedation Assessment Vital Signs Temp Pulse Pulse Pulse Resp BP BP 10/06/21 09:55 92 H 103/72 10/06/21 09:50 90 104/68 10/06/21 09:45 95 H 102/70 10/06/21 09:34 93 H 16 96/61 L 10/06/21 08:25 36.4 C L 97 H 18 121/84 10/06/21 07:27 88 10/06/21 05:45 67 133/78 10/06/21 03:38 36.4 C L 86 16 126/77 10/05/21 23:10 36.5 C 68 18 102/68 10/05/21 22:17 98 H 10/05/21 19:00 36.5 C 114 H 20 125/77 10/05/21 16:09 94 H 10/05/21 15:58 36.6 C 51 L 18 112/73 10/05/21 11:08 36.5 C 86 20 111/73 10/05/21 10:28 99 H Pulse Ox 10/06/21 09:55 99 10/06/21 09:50 98 10/06/21 09:45 98 10/06/21 09:34 98 10/06/21 08:25 97 10/06/21 07:27 10/06/21 05:45 10/06/21 03:38 93 10/05/21 23:10 95 10/05/21 22:17 10/05/21 19:00 94 10/05/21 16:09 10/05/21 15:58 95 10/05/21 11:08 96 10/05/21 10:28 Discharge Sedation Level of Care: Fast Track Phase II Post Sedation Plan On clinical assessment, the patient appears to have tolerated the sedation without complications. Patient is recovering as anticipated. Patient will continue to be monitored by nursing and may be discharged when sedation discharge criteria are met per below protocol. Upon Completions of procedure up to 15 minutes continue every 5 minute vital signs and the P.A.R. score; then discharge to a Phase I or Fast Track to Phase II per the following guidelines: * Discharge Patient to appropriate Phase II area if PAR is 8 or greater or return to pre- procedure baseline. The post - procedure orders will be as directed. * If PAR score is less than 8 or not return to pre-procedure baseline then patient will follow Phase I monitoring till PAR is reached for Phase II. The Phase I may be done in procedure room or may call to secure a Phase I area. * If naloxone or flumazenil are used for reversal, hold in Phase I for continued monitoring from when last reversal dose was given for a minimum of 60 minutes or longer pending the nurse and/or physician discretion of patient condition before discharge to Phase II. Please call the Sedation Physician to re-evaluate and complete post-note for discharge to Phase II area. Do NOT discharge from procedure sedation or Phase 1 until post- sedation evaluation note is complete by procedure /sedation MD Sedation Discharge Instructions to be given to the patient at discharge to home.
--- NOTE | 2021-10-06 10:14 | Cardioversion ---
Date of Service October 06, 2021 Electrical Cardioversion Rpt Electrical Cardioversion Report Informed consent obtained. Patient prepped. Adequate moderate sedation achieved with a total of: Versed 4 mg and fentanyl 125 mcg. LUZ performed, no left atrial thrombus present. Patient repositioned. 360 J of energy delivered with successful conversion to normal sinus rhythm. Patient tolerated well. Recover per protocol. Start time: 0 942 Stop time: 1002
--- NOTE | 2021-10-06 10:28 | Cardiology Progress Note ---
Date of Service October 06, 2021 Assessment & Plan (1) Osteoarthritis of right hip: (2) Atrial fibrillation with rapid ventricular response: (3) Decompensated heart failure: (4) Stage 3b chronic kidney disease (CKD): (5) HTN (hypertension): (6) COPD, group C, by GOLD 2017 classification: (7) Dyslipidemia: (8) BPH (benign prostatic hyperplasia): Plan: Status post successful cardioversion to normal sinus rhythm. For likely discharge later today. MT home on previous dose of Xarelto and metoprolol Would also give him prescription for Lasix 20 mg p.o. twice daily PRN only for shortness of breath My office will call to arrange outpatient follow-up with me in 1 month. Admission and Anticipated Discharge Date Admission Date: October 04, 2021 Subjective Patient seen and examined, chart reviewed. Prior to the cardioversion patient states he has been feeling great. Shortness of breath has almost completely resolved. Not sleeping well due to issues with his roommate. Telemetry reviewed: Atrial fibrillation with variable rate control overnight. Review of Systems Review of Systems: All systems reviewed & are unremarkable except as noted in HPI & below Physical Exam Physical Exam: General: Awake, alert and oriented x 3. No acute distress. HEENT: Normocephalic, atraumatic. Pupils equal, round and reactive to light and accommodation. Extraocular muscles are intact. Anicteric sclera. Moist mucous membranes. Neck: No JVD. No bruit. Cardiovascular: irregularly irregular, unable to appreciate murmur, rub or gallop. Pulmonary: Clear to auscultation bilaterally. No rales, rhonchi, or wheezing. Abdomen: Bowel sounds x 4, soft. No rebound, guarding or tenderness. No organomegaly. Extremities: No clubbing, cyanosis or edema. +2 pedal pulses bilaterally. Skin: Warm and dry. Results & Data ([facility]) Vital Signs (Past 12 Hours) Vital Signs Temp Pulse Pulse Pulse Resp BP BP 10/06/21 09:55 92 H 103/72 10/06/21 09:50 90 104/68 10/06/21 09:45 95 H 102/70 10/06/21 09:34 93 H 16 96/61 L 10/06/21 08:25 36.4 C L 97 H 18 121/84 10/06/21 07:27 88 10/06/21 05:45 67 133/78 10/06/21 03:38 36.4 C L 86 16 126/77 10/05/21 23:10 36.5 C 68 18 102/68 Pulse Ox 10/06/21 09:55 99 10/06/21 09:50 98 10/06/21 09:45 98 10/06/21 09:34 98 10/06/21 08:25 97 10/06/21 07:27 10/06/21 05:45 10/06/21 03:38 93 10/05/21 23:10 95
--- NOTE | 2021-10-06 13:02 | Communication Note ---
Date of Service: October 06, 2021 Patient seen and examined in room 229. States he feels great after LUZ guided cardioversion. Already scheduled for follow-up appointment with me. Okay to DC to home from a cardiac standpoint.
--- NOTE | 2021-10-06 14:20 | Discharge Summary ---
Date of Service October 06, 2021 Admission HPI Per Admitting Provider 76-year-old male with PMH dyslipidemia, COPD, HTN, CKD stage III, recent diagnosis of atrial fibrillation anticoagulant on Xarelto, and other problems listed below who presents the ED by referral of street sprinkler for evaluation of shortness of breath. Patient reports that he has had intermittent illness since July. Was sick for about 3 weeks with an upper respiratory infection and severe cough. Patient did eventually recover. He was then diagnosed with a UTI on 09/16/2021 and placed on Cipro 500 mg BID. Given history of prostatitis, 3- week course was prescribed. Patient was seen by PCP on 09/28 had reported on going exertional shortness of breath. EKG was obtained which demonstrated atrial fibrillation. Patient's labetalol was switched to metoprolol and patient was started on Xarelto for anticoagulation. On 09/30, patient's losartan was reduced to 50 mg (from 100 mg) due to worsening renal function. Patient was seen in nephrology office today and reported ongoing shortness of breath, PND, and was felt to be mildly volume overloaded on exam, therefore was sent to the ED for further evaluation. Patient reports shortness of breath with minimal exertion. He reports one brief episode of atypical chest discomfort yesterday. No palpitations. Denies lightheadedness, dizziness, diaphoresis, syncopal events. Has lower extremity edema on exam, right greater than left, patient feels this is near his baseline. Patient reports waking up suddenly around 5 AM feeling short of breath. This improved with sitting up. No recent fevers or chills. Urinary symptoms improving with Cipro. Denies abdominal pain, nausea, vomiting, diarrhea. In the ED, EKG shows atrial fibrillation rate 151. Patient was given metoprolol 5 mg IV x 2 and metoprolol 25 mg PO -- heart rate improved in the 90s. Patient also received 1 L IVF. Labs show creatinine 1.86 (near baseline). Admission Exam Per Admitting Provider GENERAL: Alert and oriented x3. NAD, on RA. Morbidly obese. HEENT: No pallor, no icterus. Pupils equal, round and reactive to light. Oral mucosa moist. NECK: No JVD, no neck masses. Constitutional:WD/WN, vitals as above + obeseEyes:PERRL, conjunctivae normal, anicteric scleraeENMT:external ear and nose normal, oropharynx normal Respiratory:normal respiratory effort; no respiratory distress Auscultation: + diminished lung soundsCardiovascular:Rate/Rhythm: regular rate and + irregularly irregular Vessels: normal peripheral pulses Extremities: + edema (+1-2 pitting edema BLE, right greater than left)Gastrointestinal (Abdomen): normal bowel sounds, soft, nontender, no hepatosplenomegalyMusculoskeletal:no cyanosis or clubbing, extremities motor strength 5/5Skin:no rashes, warm and d ryNeurologic:PERRL, EOMI, accommodation nl, no face palsy, no dysarthria Psychiatric:A+Ox3, euthymic affectHEART: S1 and S2 heard. irregular rate and rhythm. No murmur, no gallop. RESPIRATORY SYSTEM: Normal AP diameter. No accessory muscle use. No wheezing, no crackles. decreased breath sounds b/b. ABDOMEN: Soft, bowel sounds present, nontender, no distention. CENTRAL NERVOUS SYSTEM: No facial droop. Speech is clear. Obeys simple commands. Moves extremities. EXTREMITIES: 1+ BLE edema, no erythema seen. Principal Diagnosis A. fib RVR Acute diastolic decompensation Left atrial enlargement Acute on chronic renal failure UTI/prostatitis Discharge Exam GENERAL: Alert and oriented x3. NAD, on RA. Morbidly obese. HEENT: No pallor, no icterus. Pupils equal, round and reactive to light. Oral mucosa moist. NECK: No JVD, no neck masses. HEART: S1 and S2 heard. regular rate and rhythm. No murmur, no gallop. RESPIRATORY SYSTEM: Normal AP diameter. No accessory muscle use. No wheezing, no crackles. decreased breath sounds. ABDOMEN: Soft, bowel sounds present, nontender, no distention. CENTRAL NERVOUS SYSTEM: No facial droop. Speech is clear. Obeys simple commands. Moves extremities. EXTREMITIES: trace BLE edema, no erythema seen. Discharge Data Allergies Allergy/AdvReac Type Severity Reaction Status Date / Time Bactrim Allergy Mild Hives Verified 08/07/16 15:24 sulfamethoxazole Allergy Mild Hives Verified 10/04/21 11:18 trimethoprim Allergy Mild Hives Verified 10/04/21 11:18 Consultations 10/04/21 11:47 ED Decision to Admit Stat 10/04/21 13:14 Consult Cardiology Routine 10/04/21 22:11 Consult Orthopedic Surgery Routine Procedures Performed Operation Date: 10/06/21 09:30 Actual Procedures p Echo Transesophageal - Jimmy Ellis DO s Cardioversion - Jimmy Ellis DO Hospital Course (1) Atrial fibrillation with rapid ventricular response: (1) Atrial fibrillation, RVR (2) Decompensated heart failure: Likely acute diastolic decompensation 2/2 Afib rvr. Continue to monitor in telemetry. Patient presenting 10/04 by referral nephrology office for evaluation of tachycardia, shortness of breath, mild volume overload Patient diagnosed with atrial fibrillation on 09/28 in PCP office. At that time, carvedilol changed to metoprolol XL 25 mg daily and patient was started on Xarelto. Labs on 09/30 demonstrated worsening renal function and patient's losartan was reduced in half to 50 mg. In the ED, EKG shows atrial fibrillation rate 151. 10/04 ECHO reviewed. s/p lasix and iv metoprolol. Replete and monitor electrolytes. No crackles on exam, trace BLE edema. Lasix as needed upon discharge along with potassium supplementation when Lasix taken. Pt on room air and feels better. Hemodynamically stable. Status post LUZ and cardioversion 10/06/2021 to sinus rhythm. Cardiology evaluated, patient will need follow-up as an outpatient with PCP/cardiology/nephrology. #. Acute on chronic stage III renal failure Baseline creatinine runs around 1.6, noted to be 1.8 at admission. Patient's recent outpatient creatinine was around 2.0 due to ongoing issues with heart. Creatinine better than yesterday, patient will need CMP in 3 to 5 days time upon discharge and needs to be evaluated by his PCP and nephrology in 1 to 2 weeks time. Nephrology on board, appreciate recommendation. Lasix stopped. Avoid NSAIDs/Contrast/other nephrotoxics. Maxzide and losartan held on discharge. #. Other chronic medical conditions: HTN, COPD Blood pressure fairly WNL. Continue with/resume home meds as and when appropriate. #. UTI Diagnosed with E. coli UTI on 09/16/2021 and given history of prostatitis, patient was placed on Cipro 500 mg BID for a 3 week course Prior team Discussed with [facility] urology -- outpatient follow up appt will be arranged Continue Cipro until 10/06 to complete 3-week course #. DVT prophylaxis: Patient on Xarelto Disposition: For LUZ cardioversion tomorrow. Follow-up with your primary care physician within a week time. Follow-up with your cardiology in 1 month. Follow-up with kidney doctor as an outpatient in 1 to 2 weeks time. Get your blood work CBC and CMP done in a week time and have the results forwarded to your PCP/narcotics detective/nephrology. Continue your antibiotic course for your prostatitis as prescribed previously. Continue with Xarelto [reduced dose, see below] and metoprolol. You are being prescribed with Lasix 20 mg to be used up to 2 times a day as needed for shortness of breath. When you take your Lasix 20 mg, accompany it with potassium supplement of 20 milliequivalent. You underwent successful cardioversion of your A. fib to normal sinus rhythm 10/06/2021. Your Xarelto dose has been decreased to 15 mg daily because of your decreased kidney function. You need to follow-up with your kidney function test with your PCP and have evaluated for resuming your previous dose of Xarelto. Because of your decreased kidney function, your Maxzide has been stopped. Your losartan has been held upon discharge. You need to follow-up with your kidney doctor as outpatint for further need for evaluation/resuming of your these medications. Avoid NSAIDs. Take medications as prescribed. Total Time Total Time Spent Total Time Spent (In Minutes): 45 Discharge Plan Discharge Items Patient Disposition: Home - Self-Care Reason For Visit: AFIB RVR Discharge Diagnosis: A. fib RVR Acute diastolic decompensation Left atrial enlargement Acute on chronic renal failure UTI/prostatitis Activity: Resume your previous activity Non-emergency contact: Primary Care Provider Call non-emergency contact if: you have any medication questions, your symptoms worsen and your temperature is above 101 Follow-up/Referrals: Jimmy Ellis DO [Physician] - (Date & Time 11/04/2021 10:00 AM Provider Jimmy Ellis Jr., DO Department Cardiology, [facility] ) Robert Carbajal MD [Primary Care Provider] - (Date & Time 10/12/2021 11:20 AM Provider Robert Carbajal MD Department [facility] ) Diet: Heart Healthy and Low Sodium (2gm) Addtl Attending Provider Instructions: Follow-up with your primary care physician within a week time. Follow-up with your cardiology in 1 month. Follow-up with kidney doctor as an outpatient in 1 to 2 weeks time. Get your blood work CBC and CMP done in a week time and have the results forwarded to your PCP/narcotics detective/nephrology. Continue your antibiotic course for your prostatitis as prescribed previously. Continue with Xarelto [reduced dose, see below] and metoprolol. You are being prescribed with Lasix 20 mg to be used up to 2 times a day as needed for shortness of breath. When you take your Lasix 20 mg, accompany it with potassium supplement of 20 milliequivalent. You underwent successful cardioversion of your A. fib to normal sinus rhythm 10/06/2021. Your Xarelto dose has been decreased to 15 mg daily because of your decreased kidney function. You need to follow-up with your kidney function test with your PCP and have evaluated for resuming your previous dose of Xarelto in a week time. Because of your decreased kidney function, your Maxzide has been stopped. Your losartan has been held upon discharge. You need to follow-up with your kidney doctor as outpatint for further need for evaluation/resuming of your these medications. Avoid NSAIDs. Take medications as prescribed. Pending Studies at Discharge: No Stand-Alone Forms: [facility] [employer], Smoking Cessation Medications and DC Order Prescriptions: New Xarelto 15 mg Tablet 15 mg PO QDD Qty: 30 RF: 0 magnesium oxide 400 mg (241.3 mg magnesium) Tablet 400 mg PO BID Qty: 60 RF: 0 furosemide [Lasix] 20 mg tablet 20 mg PO BID PRN (Reason: edema/shortness of breath) Qty: 60 RF: 0 potassium chloride 20 mEq tablet extended release 20 meq PO BID PRN (Reason: when lasix is used) Qty: 60 RF: 0 Continued prednisone 10 mg tablet 10 mg PO DIRECTED PRN (Reason: hip pain) RF: 0 atorvastatin 20 mg tablet 20 mg PO DAILY RF: 0 ciprofloxacin HCl 500 mg tablet 500 mg PO BID RF: 0 aspirin [Aspir-Low] 81 mg Tablet,Delayed Release (Dr/Ec) 81 mg PO DAILY RF: 0 triamcinolone acetonide 0.1 % cream 1 applic TOPICAL BID PRN (Reason: FLARE UPS) RF: 0 metoprolol succinate 25 mg tablet extended release 24 hr 25 mg PO DAILY RF: 0 albuterol sulfate 90 mcg/actuation HFA aerosol inhaler 2 puff INHALATION Q4 PRN (Reason: Shortness Of Breath Or Wheezing) RF: 0 Spiriva with HandiHaler 18 mcg capsule, w/inhalation device 1 cap INHALATION DAILY RF: 0 budesonide-formoterol [Symbicort] 160-4.5 mcg/actuation HFA aerosol inhaler 2 puff INHALATION BID RF: 0 famotidine 40 mg tablet 40 mg PO DAILY RF: 0 tramadol 50 mg Tablet 50 mg PO Q6H PRN (Reason: Pain) RF: 0 cholecalciferol (vitamin D3) [Vitamin D3] 25 mcg (1,000 unit) Tablet 25 mcg PO DAILY RF: 0 Discontinued Xarelto 20 mg tablet 20 mg PO DAILY RF: 0 triamterene-hydrochlorothiazid 75-50 mg tablet 1 tab PO DAILY RF: 0 losartan 100 mg tablet 50 mg PO DAILY RF: 0 Discharge Orders: Discharge Order (Routine); Ordered 10/06/21 Ordered By: Erick Hernadez Admission Data Admit Date/Time: 10/04/21 12:31 Attending Provider: Erick Hernadez Admit Provider: Tony Rao Primary Care Provider: Robert Carbajal Other Providers: Jimmy Ellis ; Tony Rao ; Jonathon Lcuero
--- NOTE | 2021-10-07 17:46 | Electrocardiogram Report ---
Test Reason : Blood Pressure : / mmHG Vent. Rate : 101 BPM Atrial Rate : 107 BPM P-R Int : 000 ms QRS Dur : 152 ms QT Int : 396 ms P-R-T Axes : 000 106 000 degrees QTc Int : 513 ms Atrial fibrillation with rapid ventricular response Rightward axis Right bundle branch block Abnormal ECG When compared with ECG of 05-OCT-2021 06:11, No significant change was found Confirmed by Winston Sheldon ([id number]) on 10/07/2021 5:45:59 PM Referred By: Chio Palumbo Confirmed By:Jonathon Sheldon
--- NOTE | 2021-10-07 17:51 | Electrocardiogram Report ---
Test Reason : Blood Pressure : / mmHG Vent. Rate : 060 BPM Atrial Rate : 060 BPM P-R Int : 170 ms QRS Dur : 134 ms QT Int : 460 ms P-R-T Axes : 071 088 037 degrees QTc Int : 460 ms Normal sinus rhythm Right bundle branch block Abnormal ECG When compared with ECG of 06-OCT-2021 06:06, (unconfirmed) Sinus rhythm has replaced Atrial fibrillation Vent. rate has decreased BY 41 BPM Confirmed by Winston Sheldon ([id number]) on 10/07/2021 5:50:39 PM Referred By: Chio Palumbo Confirmed By:Jonathon Sheldon
== END 2021-10-06 16:23 | disposition home or self-care (01) | DRG 308 ==
LOC: ED 10:08 → SUATTDRO 12:31 → 2S 12:31

== ENCOUNTER 2021-12-16 05:12 | Observation (INO) ==
--- NOTE | 2021-11-10 10:02 | PAT Medication Instructions ---
Medication Instructions Date of Service November 10, 2021 Home Medications Medication Instructions Recorded magnesium oxide 400 mg (241.3 mg 400 mg PO BID #60 tab 10/06/21 magnesium) tablet albuterol sulfate 90 mcg/actuation aerosol inhaler 2 puff INHALATION Q4 PRN aspirin 81 mg tablet,delayed release 81 mg PO QPM atorvastatin 20 mg tablet 20 mg PO HS budesonide-formoterol HFA 160 mcg-4.5 mcg/actuation aerosol inhaler (Symbicort) 2 puff INHALATION BID cholecalciferol (vitamin D3) 25 mcg (1,000 unit) tablet (Vitamin D3) 25 mcg PO QPM famotidine 40 mg tablet 40 mg PO QAM tiotropium bromide 18 mcg capsule with inhalation device (Spiriva with Hand iHaler) 1 cap INHALATION QAM tramadol 50 mg tablet 50 mg PO Q6H PRN triamcinolone acetonide 0.1 % topical cream 1 applic TOPICAL BID PRN magnesium oxide 400 mg (241.3 mg magnesium) tablet 400 mg PO BID amiodarone 200 mg tablet 200 mg PO BID bumetanide 1 mg tablet 1 mg PO BID metoprolol succinate 50 mg tablet,extended release 24 hr 50 mg PO HS potassium chloride 20 mEq tablet,extended release 20 meq PO BID rivaroxaban 15 mg tablet (Xarelto) 15 mg PO QPM ASK your prescriber and surgeon rivaroxaban 15 mg tablet (Xarelto) 15 mg PO QPM(in order for spinal or epidural anesthesia, Xarelto needs to be stopped 72 hours/3 days before surgery. Please check if okay with doctor that prescribes this to you) STOP taking 24 hours before surgery triamcinolone acetonide 0.1 % topical cream 1 applic TOPICAL BID PRN DO NOT take the morning of surgery magnesium oxide 400 mg (241.3 mg magnesium) tablet 400 mg PO BID bumetanide 1 mg tablet 1 mg PO BID potassium chloride 20 mEq tablet,extended release 20 meq PO BID Take morning of surgery With a small sip of water, OTHERWISE NOTHING TO EAT OR DRINK AFTER MIDNIGHT: albuterol sulfate 90 mcg/actuation aerosol inhaler 2 puff INHALATION Q4 PRN(use if needed; please bring with you to hospital day of surgery if possible) budesonide-formoterol HFA 160 mcg-4.5 mcg/actuation aerosol inhaler (Symbicort) 2 puff INHALATION BID famotidine 40 mg tablet 40 mg PO QAM tiotropium bromide 18 mcg capsule with inhalation device (Spiriva with HandiHaler) 1 cap INHALATION QAM tramadol 50 mg tablet 50 mg PO Q6H PRN(if needed) amiodarone 200 mg tablet 200 mg PO BID Take evening before surgery albuterol sulfate 90 mcg/actuation aerosol inhaler 2 puff INHALATION Q4 PRN(if needed) aspirin 81 mg tablet,delayed release 81 mg PO QPM (unless directed otherwise by surgeon) budesonide-formoterol HFA 160 mcg-4.5 mcg/actuation aerosol inhaler (Symbicort) 2 puff INHALATION BID cholecalciferol (vitamin D3) 25 mcg (1,000 unit) tablet (Vitamin D3) 25 mcg PO QPM tramadol 50 mg tablet 50 mg PO Q6H PRN(if needed) atorvastatin 20 mg tablet 20 mg PO HS magnesium oxide 400 mg (241.3 mg magnesium) tablet 400 mg PO BID amiodarone 200 mg tablet 200 mg PO BID bumetanide 1 mg tablet 1 mg PO BID metoprolol succinate 50 mg tablet,extended release 24 hr 50 mg PO HS potassium chloride 20 mEq tablet,extended release 20 meq PO BID Other Notes If you have any questions please call us at [phone] or [phone] or [phone] or [phone]
--- NOTE | 2021-11-14 12:36 | Anesthesiology Consultation ---
Date of Service November 14, 2021 Assessment & Plan (1) Encounter for pre-operative examination: - awaiting cardiology pre-op appts/clearances and nephrology response to optimization note. - nephrology 11/03/21 [facility]: "...progressive nonproteinuric CKD 3 in the setting of recurrent UTI, advanced age, and chronic NSAID use here for hospital f/u follow up > sent him to hospital mid September 2021 after he came to CKD clinic visit w/ decompensated HF in setting newly dx'd AF w/ RVR...Baseline creatinine 1.6, was 1.8 at admission. Had been 2.0 prior to admission. Lasix, Maxzide, losartan all held at hospital discharge. He was on Cipro 500 mg twice daily for 3 week course starting September 16, 2021: This was continued through October 06. Started on lasix 20 mg bid prn w/ 20 mEq K prn bid...nonproteinuric CKD3 BUT has had PARISA in setting new dx of AF w/ RVR and HF and now obligate diuretics. Volume status optimized at this point; trial of gently scaling back on bumex dose-DTP and diuretic dose as below-f/u labs as below-close in f/u w/ neph and w/ cardiology. Hope that he will have some rnela [sic] recovery in coming weeks if his cardiac situation stabilizes; unclear prospects for ortho surgery this summer; he's aware..." Optimization note faxed to nephrology. - COVID screening: Per assessment on 11/14/2021: Travel screen negative, no known COVID-19 positive contacts or current COVID-19 related symptoms in past 2 weeks. Pt vaccinated. Surgeon arranging preop COVID testing, scheduled 12/14/2021. Awaiting results. Chart Review Chart Review: Pending: Refer to Additional Notes / Consult section and Patient seen in Pre Admission Testing Teaching & Discussion Pre-Anesthesia Teaching/Discussion Notes: Instructed NPO after midnight before surgery, except medications with 15 cc of water. Medication instructions provided according to the PAT guidelines. History Surgery Operation Date: 12/16/21 12:30 Proposed Procedures p Right Anterior Total Hip Arthroplasty - Jonathon Lucero, Height/Weight Height: 6 ft 2 in Weight: 128.2 kg Allergies Allergy/AdvReac Type Severity Reaction Status Date / Time amoxicillin [From Augmentin] Allergy Intermediate severe GI Verified 11/10/21 14:16 distress clavulanic acid Allergy Intermediate severe GI Verified 11/10/21 14:16 [From Augmentin] distress Bactrim Allergy Mild Hives Verified 08/07/16 15:24 sulfamethoxazole Allergy Mild Hives Verified 11/09/21 10:41 trimethoprim Allergy Mild Hives Verified 11/09/21 10:41 Medications Home Medications Medication Instructions Recorded Confirmed Last Taken albuterol sulfate 90 mcg/actuation 2 puff INHALATION Q4 PRN 10/04/21 11/09/21 Unknown aerosol inhaler aspirin 81 mg tablet,delayed 81 mg PO QPM 10/04/21 11/09/21 Unknown release atorvastatin 20 mg tablet 20 mg PO HS 10/04/21 11/09/21 Unknown budesonide-formoterol HFA 160 2 puff INHALATION BID 10/04/21 11/09/21 Unknown mcg-4.5 mcg/actuation aerosol inhaler (Symbicort) cholecalciferol (vitamin D3) 25 25 mcg PO QPM 10/04/21 11/09/21 Unknown mcg (1,000 unit) tablet (Vitamin D3) famotidine 40 mg tablet 40 mg PO QAM 10/04/21 11/09/21 10/03/21 tiotropium bromide 18 mcg capsule 1 cap INHALATION QAM 10/04/21 11/09/21 Unknown with inhalation device (Spiriva with HandiHaler) tramadol 50 mg tablet 50 mg PO Q6H PRN 10/04/21 11/09/21 Unknown triamcinolone acetonide 0.1 % 1 applic TOPICAL BID PRN 10/04/21 11/09/21 Unknown topical cream magnesium oxide 400 mg (241.3 mg 400 mg PO BID #60 tab 10/06/21 11/09/21 Unknown magnesium) tablet amiodarone 200 mg tablet 200 mg PO BID 10/31/21 11/09/21 Unknown bumetanide 1 mg tablet 1 mg PO BID 10/31/21 11/09/21 Unknown metoprolol succinate 50 mg 50 mg PO HS 10/31/21 11/09/21 Unknown tablet,extended release 24 hr potassium chloride 20 mEq 20 meq PO BID 10/31/21 11/09/21 Unknown tablet,extended release rivaroxaban 15 mg tablet (Xarelto) 15 mg PO QPM 10/31/21 11/09/21 Unknown Past Medical History Medical History (Updated 11/14/21 @ 12:29 by Flor Siddiqi PA-C) Atrial fibrillation Dx in 09/2021 - s/p cardioversion 10/06/21 and 11/02/[address] Ellis BPH (benign prostatic hyperplasia) Cervical disc disease COPD, group C, by GOLD 2017 classification stable per pt-last rescue inhaler use > 1 mos Diastolic CHF In the setting of a fib with RVR-EF 55-60% 09/2021 echo Dyslipidemia GERD (gastroesophageal reflux disease) controlled, stable per pt History of cardioversion 09/2021 and 10/2021 Dr Ellis HTN (hypertension) controlled, stable per pt Hx of melanoma of skin SILVERMAN (nonalcoholic steatohepatitis) denies h/o elevated LFTs Prostatitis Hx of and gets frequent UTI Pulmonary embolism 2016 Stage 3b chronic kidney disease (CKD) Patient denies h/o stroke, seizures, heart attack, heart failure, DM or blood transfusions. Exercise / Class Metabolic Activity III < 4 Walking/Shop/Light housework (denies CP or SOB) Past Family History Family History Denies family history of Heart disease Kidney disease Past Surgical History Surgical History Hx of colonoscopy Past Anesthesia History No Hx of Anesthesia Complications and No Family Hx of Anesthesia Complications History of PONV No Hx of PONV and No Hx of Motion Sickness Social History Smoking Status: Former smoker (quit 24 yrs ago) Do You Dip or Chew Tobacco: No (quit 5 yrs ago) Smoking End Date: 24 yrs ago Hx Alcohol Use: No Hx Substance Use: No substance use type: does not use Review of Systems Snoring, denies witnessed apneas. Patient denies chest pain, shortness of breath, dyspnea on exertion, fever, chills or palpitations. Physical Exam Vital Signs Vitals BP 125/71 P 52 (chronic per pt, states cardio is aware, denies associated symptoms including dizziness/lightheadedness, chest discomfort, shortness of breath) TEMP 98.3 SP02 97% on RA RESP 17 Physical Short, thick neck Full cervical extension range of motion without pain TMD 3 finger breaths Mallampati Score 3 Dentition: intact, one chipped tooth- denies missing or loose teeth, caps/crowns, implants or bridges Lungs: normal respiratory effort. Clear throughout to auscultation, no adventitious breath sounds Cardiac: bradycardic, regular rhythm, no murmurs noted Carotid arteries: negative bruit bilat Lab Results Anesthesia Preop Results Results Anesthesia Widget: WBC 5.63 K/uL (4.8-10.8) 11/14/21 Hgb 13.6 g/dL (14.0-18.0) L 11/14/21 Hct 41.7 % (42-52) L 11/14/21 Plt 239 K/uL (130-400) 11/14/21 Na 140 mmol/L (136-145) 11/14/21 K 3.8 mmol/L (3.5-5.1) 11/14/21 Cl 104 mmol/L (98-107) 11/14/21 CO2 29 mmol/L (21-32) 11/14/21 BUN 30 mg/dl (6-23) H 11/14/21 Creat 2.12 mg/dl (0.6-1.4) H 11/14/21 Glucose Level 154 mg/dl (70-99(Fasting)) H 11/14/21 PT 12.5 Seconds (9.0-12.0) H 11/14/21 PTT 30.9 Seconds (21.0-31.0) 11/14/21 INR 1.2 (0.9-1.1) H 11/14/21 TSH 1.669 uIu/ml (0.300-4.500) 10/04/21 Urine Color Yellow 10/04/21 Urine Appearance Cloudy (Clear) A 10/04/21 Urine pH 5.0 (4.5-7.5) 10/04/21 Urine Specific [place] 1.012 (1.000-1.030) 10/04/21 Urine Protein Negative (Negative) 10/04/21 Urine Glucose (UA) Negative (Negative) 10/04/21 Urine Ketones Negative (Negative) 10/04/21 Urine Blood Negative (Negative) 10/04/21 Urine Nitrite Negative (Negative) 10/04/21 Urine Bilirubin Negative (Negative) 10/04/21 Urine Urobilinogen Negative (Negative) 10/04/21 Urine Leukocyte Esterase Negative (Negative) 10/04/21 Urine WBC (Auto) 1-5 /hpf (0-5) 10/04/21 Urine RBC (Auto) 0-4 /hpf (0-4) 10/04/21 Urine Hyaline Casts (Auto) 1-5 /lpf (0-5) 10/04/21 Urine Epithelial Cells (Auto) 5-10 /lpf (0-5) H 10/04/21 Urine Bacteria (Auto) Negative (Negative) 10/04/21 COVID-19 PCR NEGATIVE (Negative) 10/04/21 Blood Type O Positive 11/14/21 Antibody Screen NEGATIVE 11/14/21 Testing Electrocardiogram Date: 11/02/21 Sinus bradycardia with premature supraventricular complexes, rate 55 bpm RBBB Chest X-Ray Date: 11/14/21 PA and lateral chest radiographs are compared to study dated 10/04/2021. The heart is enlarged noting atherosclerotic calcification of the thoracic aorta. Pulmonary vasculature is noncongested. Chronic interstitial thickening is similar to previous. Subpleural reticulation with foci of parenchyma scarring are again seen throughout both lungs. There is no airspace consolidation typical for pneumonia or pleural effusion. There is no pneumothorax. The skeletal structures are osteopenic. The bony thorax appears intact. IMPRESSION: Cardiomegaly and chronic parenchymal changes as above with no active disease in the chest. Echocardiogram Date: 10/04/21 EF 55-60% Mild cLVH No segmental LV wall motion abnormalities Poorly visualized valvular structures without significant stenosis or regurgitation by Doppler Mild LA enlargement Mildly dilated RV Borderline aortic root dilatation Diastolic dysfunction likely d/t presence of LA enlargement Other Testing LUZ 10/06/21 No left atrial thrombus Moderate MR Severe LA enlargement
--- NOTE | 2021-12-15 12:15 | History & Physical Report ---
Date of Service December 15, 2021 Assessment & Plan (1) Osteoarthritis of right hip: We will proceed with a right anterior total of arthroplasty. Postoperatively he will be started on Xarelto for DVT prophylaxis and kept overnight in the hospital for postoperative medical management. He plans to use energy physical therapy upon discharge. History of Present Illness Chief Complaint: Osteoarthritis of the right hip. Primary Care Provider: Robert Carbajal MD Conner is a pleasant 76-year-old male who is been doing chronic increasing right hip and groin pain. X-rays and clinical examination have been diagnostic for advanced arthritis of the right hip. He has recently had some cardiac issues with atrial fibrillation. He has full cardiac clearance. He would like to proceed with a right anterior total hip arthroplasty.. Allergies Allergy/AdvReac Type Severity Reaction Status Date / Time amoxicillin [From Augmentin] Allergy Intermediate severe GI Verified 11/10/21 14:16 distress clavulanic acid Allergy Intermediate severe GI Verified 11/10/21 14:16 [From Augmentin] distress Bactrim Allergy Mild Hives Verified 08/07/16 15:24 sulfamethoxazole Allergy Mild Hives Verified 11/09/21 10:41 trimethoprim Allergy Mild Hives Verified 11/09/21 10:41 Home Medications Medication Instructions Recorded Confirmed Type albuterol sulfate 90 mcg/actuation 2 puff inhalation Q4 PRN Shortness 10/04/21 11/09/21 History aerosol inhaler Of Breath Or Wheezing aspirin 81 mg tablet,delayed 81 mg PO QPM 10/04/21 11/09/21 History release atorvastatin 20 mg tablet 20 mg PO HS 10/04/21 11/09/21 History budesonide-formoterol HFA 160 2 puff inhalation BID 10/04/21 11/09/21 History mcg-4.5 mcg/actuation aerosol inhaler (Symbicort) cholecalciferol (vitamin D3) 25 25 mcg PO QPM 10/04/21 11/09/21 History mcg (1,000 unit) tablet (Vitamin D3) famotidine 40 mg tablet 40 mg PO QAM 10/04/21 11/09/21 History tiotropium bromide 18 mcg capsule 1 cap inhalation QAM 10/04/21 11/09/21 History with inhalation device (Spiriva with HandiHaler) tramadol 50 mg tablet 50 mg PO Q6H PRN Pain 10/04/21 11/09/21 History triamcinolone acetonide 0.1 % 1 applic topical BID PRN FLARE UPS 10/04/21 11/09/21 History topical cream magnesium oxide 400 mg (241.3 mg 400 mg PO BID #60 tabs 10/06/21 11/09/21 Rx magnesium) tablet amiodarone 200 mg tablet 200 mg PO BID 10/31/21 11/09/21 History bumetanide 1 mg tablet 1 mg PO BID 10/31/21 11/09/21 History metoprolol succinate 50 mg 50 mg PO HS 10/31/21 11/09/21 History tablet,extended release 24 hr potassium chloride 20 mEq 20 meq PO BID 10/31/21 11/09/21 History tablet,extended release rivaroxaban 15 mg tablet (Xarelto) 15 mg PO QPM 10/31/21 11/09/21 History Past Med/Surg History Medical History Atrial fibrillation Dx in 09/2021 - s/p cardioversion 10/06/21 and 11/02/[address] Ellis BPH (benign prostatic hyperplasia) Cervical disc disease COPD, group C, by GOLD 2017 classification stable per pt-last rescue inhaler use > 1 mos Diastolic CHF In the setting of a fib with RVR-EF 55-60% 09/2021 echo Dyslipidemia GERD (gastroesophageal reflux disease) controlled, stable per pt History of cardioversion 09/2021 and 10/2021 Dr Ellis HTN (hypertension) controlled, stable per pt Hx of melanoma of skin SILVERMAN (nonalcoholic steatohepatitis) denies h/o elevated LFTs Prostatitis Hx of and gets frequent UTI Pulmonary embolism 2017 Stage 3b chronic kidney disease (CKD) Surgical History Hx of colonoscopy Family History Denies family history of Heart disease Kidney disease Social History Smoking Status: Never smoker Second Hand Exposure: No; Hx Alcohol Use: No Hx Substance Use: No Preferred Language: Nigerian Communication Ability: Effective Communications Billing Analyst Required: No Beliefs That Will Affect Care: None Current Living Situation: Spouse Feels Safe at Home: Yes Assistive Devices: Cane and Glasses Review of Systems All systems reviewed & are unremarkable except as noted in HPI & below. Physical Exam On physical examination of the right hip, he has decreased range of motion. He has pain with forced internal and external rotation. All of his pain is located in his groin.. Constitutional WD/WN, vitals as above Eyes PERRL, conjunctivae normal, anicteric sclerae ENMT external ear and nose normal, oropharynx normal Neck trachea midline, no thyromegaly Respiratory normal respiratory effort, lungs clear to auscultation Cardiovascular RRR, no murmur, no edema Gastrointestinal (Abdomen) normal bowel sounds, soft, nontender, no hepatosplenomegaly Skin no rashes, warm and dry Psychiatric A+Ox3, euthymic affect Results & Data Results & Data Laboratory Results . Diagnostic Findings X-rays of the right hip show advanced osteoarthritis with joint space narrowing, osteophyte formation, and loyt-to-[id number] articulation. PG Care Time/CCT Total # of Minutes Spent Total Time Spent with Patient: Total time spent is greater than 50% in coordination of care (as documented) at patient's floor/unit and/or counseling patient: Coding Level of Care Code None Diagnoses Osteoarthritis of right hip M16.11
[2021-12-16] MEDS ORDERED: dexAMETHasone 4 MG TAB PO SCH (06:00)
[2021-12-16] MEDS ORDERED: LR 60ML/HR IV SCH (06:00)
[2021-12-16] MEDS ORDERED: TRANEXAMIC ACID 1,000 MG **IV Pre-op IV SCH (06:00)
[2021-12-16] MEDS ORDERED: FAMOTIDINE 20 MG TAB PO SCH (06:00)
[2021-12-16] MEDS ORDERED: TRANEXAMIC ACID 1,000 MG **IV Intra-op IV SCH (06:00)
[2021-12-16] MEDS ORDERED: GABAPENTIN 300 MG CAP PO SCH (06:00)
[2021-12-16] MEDS ORDERED: Ketorolac (*for OR use only*) 30 MG, dexAMETHasone 4 MG, KETAMINE HCL (**OR use only) 1... INFIL SCH (06:00)
[2021-12-16] MEDS ORDERED: ACETAMINOPHEN 500 MG TAB PO SCH (06:00)
[2021-12-16] MEDS ORDERED: BUPIVACAINE 0.5 % 5 MG/1 ML PF 10ML VIAL ONE (06:27)
[2021-12-16] MEDS ORDERED: fentaNYL citrate 100 MCG/2 ML VIAL ONE (06:34)
[2021-12-16] MEDS ORDERED: MIDAZOLAM HCL 1 MG/ML 2ML VIAL ONE (06:34)
[2021-12-16] MEDS ORDERED: ePHEDrine sulfate 50 MG/ML AMP IV PRN (06:35)
[2021-12-16] MEDS ORDERED: fentaNYL citrate 100 MCG/2 ML VIAL IV PRN (06:35)
[2021-12-16] MEDS ORDERED: ATROPINE SULFATE 0.1 MG/ML 10ML SYR IV PRN (06:35)
[2021-12-16] MEDS ORDERED: ONDANSETRON INJ 2 MG/ML 2 ML VIAL IV PRN ×2 (06:35→10:43)
--- NOTE | 2021-12-16 06:37 | History & Physical Bridge Note ---
Date of Service December 16, 2021 History & Physical Bridge Note I have examined the patient, reviewed the History & Physical and in the interval since the performance of the History & Physical I have noted the following changes of clinical significance: no changes noted
[2021-12-16] MEDS ORDERED: ORTHO JOINT ANESTHETIC ONE (06:38)
[2021-12-16] MEDS ORDERED: LIDOCAINE 2% MPF LOCAL 5 ML VIAL INFIL ONE (06:44)
[2021-12-16] MEDS ORDERED: ONDANSETRON INJ 2 MG/ML 2 ML VIAL ONE (06:44)
[2021-12-16] MEDS ORDERED: PROPOFOL IV EMULSION 10 MG/ML 20 ML VIAL IV ONE (06:44)
[2021-12-16] MEDS ORDERED: ePHEDrine sulfate 50 MG/ML AMP ONE (07:23)
[2021-12-16] MEDS ORDERED: PHENYLEPHRINE HCL 10 MG/ML VIAL ONE (07:32)
--- NOTE | 2021-12-16 08:15 | Operative Report ---
PG Post Operative Report Pre & Post Diagnosis Operation Date: 12/16/21 07:00 Pre-Op Diagnosis: DJD Right Hip Post-Op Diagnosis: DJD Right Hip I identified the patient and participated in the time-out.: Yes Procedure Operation Date: 12/16/21 07:00 Actual Procedures p Right Anterior Total Hip Arthroplasty(Right) - Jonathon Lucero DO Surgeon Jonathon Lucero DO [employer] Jonathon Bobo PA-C Estimated Blood Loss 250 Findings Consistent with Post-Op Diagnosis Specimens Right femoral head Description of Procedure Implants used I used a ZimmerBiomet total hip arthroplasty system with a size 5 standard offset Avenir Complete stem, a 60 mm G7 cup with a 25mm screw, an E1 polyethylene liner, a 40 mm ceramic head with a 0 neck. Conner arrived at the hospital for the above procedure. He was seen in the preoperative holding area and the operative extremity was identified and signed. He was given a spinal anesthetic, a preoperative antibiotic, and TXA. He was then taken back to the operating room and laid on the table in the supine position. He was given basic sedation. The operative leg was secured to a Puristst leg positioner. The hip was then prepped and draped in sterile fashion. A timeout was done and the patient and the operative extremity was properly identified. An anterior approach was used. Dissection was taken down through the fascia and the tensor muscle belly was retracted laterally and the rectus was retracted medially. The circumflex vessels were identified and ligated. The capsule was then incised and tagged for later repair. The femoral neck was then cut and the femoral head was removed. The acetabulum was exposed. Time was spent doing a complete circumferential labral release. Sequential reaming of the acetabulum up to a size 59 reamer was done. Final reamings were done under fluoroscopy to ensure appropriate version. A Biomet 60 mm G7 cup was then impacted into place. A single 25 mm screw was placed. The E1 polyethylene liner was then snapped into place. Surrounding soft tissues were then injected with 100 cc of an orthopedic pain control cocktail. The proximal femur was then exposed. Sequential broaching up to a size 5 broach was done. Off that broach a size 40 head with a 0 neck was trialed. The hip was reduced and fluoroscopic images showed anatomic alignment of the implants in acceptable length. The broach was removed. The final size 5 standard offset Avenir Complete stem was then impacted into place. A ceramic 40 mm head with a 0 neck was then impacted onto the stem and the hip was reduced. Final fluoroscopic images showed anatomic alignment of the hip. The capsule was then closed with #1 Vicryl suture. A dilute betadyne lavage was then done for 3 minutes. The joint was then irrigated with normal saline solution. The fascia was closed with #1 PDS suture. Skin was closed with 2-0 Vicryl, jonas, and a Silverlon dressing. He was then transferred to a hospital bed and taken to the post anesthesia care unit in stable condition. He tolerated the procedure well. Jonathon Bobo PA-C, was present for the entire procedure. He was critical for patient positioning, prepping, draping, retraction exposure, wound closure and application of sterile dressing. I attest to the content of the Intraoperative Record and any orders documented therein. Any exceptions are noted below.
--- NOTE | 2021-12-16 08:53 | Fluoroscopy Report ---
FL hip RT 1V CLINICAL HISTORY: Right anterior hip arthroplasty. COMPARISON STUDY: None. FLUOROSCOPY TIME: 19 seconds. FINDINGS: 2 fluoroscopic spot images of the right hip demonstrate a right total hip arthroplasty. The hardware is intact. No fracture or dislocation. IMPRESSION: Intraoperative fluoroscopic assistance provided for a right total arthroplasty. ACT 112: Negative or not required by law. Electronically signed by: Wayne Mason M.D. 12/16/2021 8:52 AM
--- NOTE | 2021-12-16 09:42 | Anesthesiology Progress Note ---
Date of Service December 16, 2021 Anesthesia Post Procedure Vital Signs Vital Signs: Temp Pulse Resp BP Pulse Ox O2 Del Method O2 Flow Rate 12/16/21 09:30 57 L 19 135/74 96 Nasal Cannula 3 12/16/21 09:20 55 L 20 123/69 96 Nasal Cannula 3 12/16/21 09:10 57 L 20 128/66 97 Nasal Cannula 3 12/16/21 09:00 57 L 17 116/65 94 Room Air 12/16/21 08:40 56 L 16 115/65 97 Room Air 12/16/21 08:50 56 L 17 120/65 95 Room Air 12/16/21 08:30 57 L 18 108/57 L 94 Room Air 12/16/21 08:23 97.7 F 60 12 102/68 94 Room Air 12/16/21 05:38 98.1 F 66 20 178/87 H 96 Room Air Pain Intensity Right Hip: Pain Intensity: 0 Transfer of Care Handoff Completed per policy Notes Mental Status: alert / awake / arousable and participated in evaluation Patient Amnestic to Procedure: Yes Nausea / Vomiting: adequately controlled Pain: adequately controlled Airway Patency, RR, SpO2: stable & adequate BP & HR: stable & adequate Hydration State: stable & adequate Neuraxial Anesthesia: was administered and sensory block is resolving Anesthetic Complications: no major complications apparent and Pt Satisfied with anesthetic care
--- NOTE | 2021-12-16 09:47 | XRay Report ---
XR hip 1V RT w pelvis HISTORY: 76 years-old Male IN PACU - A/P PELVIS and LATERAL HIP right hip total joint arthroplasty COMPARISON: Hip radiographs 11/14/2021 TECHNIQUE: AP view of the pelvis with crosstable lateral view of the right hip FINDINGS: Right hip total joint arthroplasty demonstrates satisfactory alignment. No acute fracture or unexpect ed opaque foreign body. Lateral skin jonas are present along with expected postoperative soft tissu e swelling with deep tissue air. Moderate left hip osteoarthritis. IMPRESSION: Right hip total joint arthroplasty with expected postoperative changes. ACT 112: Negative or not required by law. The above report was generated using voice recognition software. It may contain grammatical, syntax o r spelling errors. Electronically signed by: Francis Mandel M.D. 12/16/2021 9:45 AM
[2021-12-16] MEDS ORDERED: oxyCODONE HCL IR 5 MG TAB (IMMEDIATE RELEASE) PO PRN (10:43)
[2021-12-16] MEDS ORDERED: METOCLOPRAMIDE HCL INJ 5 MG/ML 2 ML VIAL IV PRN (10:43)
[2021-12-16] MEDS ORDERED: HYDROmorphone INJ 0.5 MG/0.5 ML SYR IV PRN (10:43)
[2021-12-16] MEDS ORDERED: ALBUTEROL HFA 8 GM INHALER INH PRN (10:43)
[2021-12-16] MEDS ORDERED: ASPIRIN 81 MG ECTAB PO SCH (10:43)
[2021-12-16] MEDS ORDERED: bisacodyL 10 MG SUPP PR PRN (10:43)
[2021-12-16] MEDS ORDERED: NALOXONE HCL 0.4 MG/1 ML VIAL/CARP IV PRN (10:43)
[2021-12-16] MEDS ORDERED: MAGNESIUM HYDROXIDE SUSP 30 ML UDC PO PRN (10:43)
[2021-12-16] MEDS ORDERED: TRIAMCINOLONE ACET 0.1% CR 15 GM TUBE TOP PRN (10:43)
[2021-12-16] MEDS ORDERED: BUDESONIDE/FORMOTEROL FUMARATE 160/4.5 60 PUFFS/INHALER INH SCH (10:43)
[2021-12-16] MEDS: AMIODARONE 200 MG TAB PO SCH ×3 (11:25→21:10)
[2021-12-16] MEDS: SODIUM CHLORIDE 0.9% 1000ML 1,000 ML IV SCH ×2 (12:01→22:04)
[2021-12-16] MEDS: POTASSIUM CHLORIDE CRTAB 20 MEQ TABCR PO SCH ×2 (12:24→21:07)
[2021-12-16] MEDS: MULTIVITAMIN TAB PO SCH (12:25)
[2021-12-16] MEDS: BUMETANIDE 1 MG TAB PO SCH ×2 (12:25→15:17)
[2021-12-16] MEDS: DOCUSATE SODIUM 100 MG CAP PO SCH ×2 (12:25→21:04)
[2021-12-16] MEDS: MAGNESIUM OXIDE 400 MG TAB PO SCH ×2 (12:25→21:05)
[2021-12-16] MEDS: ACETAMINOPHEN 500 MG TAB PO SCH ×2 (13:57→21:06)
[2021-12-16] MEDS: ceFAZolin 2000MG 2,000 MG/15 ML SYR IV SCH ×2 (15:06→23:13)
[2021-12-16] MEDS ORDERED: RIVAROXABAN 15 MG TAB PO SCH (17:00)
[2021-12-16] MEDS ORDERED: METOPROLOL SUCC 25MG EXT REL TAB PO SCH (21:00)
[2021-12-16] MEDS ORDERED: ATORVASTATIN 20 MG TAB PO SCH (21:00)
[2021-12-16] MEDS ORDERED: SENNA 8.6 MG TAB PO SCH (21:00)
[2021-12-17] MEDS: ACETAMINOPHEN 500 MG TAB PO SCH (05:26)
[2021-12-17] MEDS ORDERED: dexAMETHasone 4 MG TAB PO SCH (08:00)
--- NOTE | 2021-12-17 08:01 | Orthopedic Progress Note ---
Date of Service December 17, 2021 Assessment & Plan (1) Status post right hip replacement: Overall he is doing very well. Is not having much pain in the right hip. He will be seen by physical therapy today for ambulation and range of motion exercises. He is on Xarelto for DVT prophylaxis. He can be discharged home later today. He will follow-up with orthopedics in 2 weeks. Bari Prieto was seen and examined at bedside this morning. Overall is doing very well. Is not having much pain in the right hip. He has been up and ambulating to the bathroom. He has no complaints.. Review of Systems All systems reviewed & are unremarkable except as noted in HPI & below. Physical Exam On physical examination of the right hip, the dressing is clean and dry. His leg lengths are equal. He has active dorsiflexion plantarflexion of his right ankle.. Results & Data Results & Data Laboratory Results . Diagnostic Findings Postoperative x-rays of the right hip show the prosthesis to be in anatomic alignment without any evidence of fracture, desiccation, or loosening. PG Care Time/CCT Total # of Minutes Spent Total Time Spent with Patient: Total time spent is greater than 50% in coordination of care (as documented) at patient's floor/unit and/or counseling patient: Coding Level of Care Code 52477 Post Operative Follow-Up Diagnoses Status post right hip replacement Z96.641
--- NOTE | 2021-12-17 08:12 | Discharge Summary ---
Date of Service December 17, 2021 Admission HPI (Per Admitting) Conner is a pleasant 76-year-old male who is been doing chronic increasing right hip and groin pain. X-rays and clinical examination have been diagnostic for advanced arthritis of the right hip. He has recently had some cardiac issues with atrial fibrillation. He has full cardiac clearance. He would like to proceed with a right anterior total hip arthroplasty.. Admission Exam (Per Admitting) On physical examination of the right hip, he has decreased range of motion. He has pain with forced internal and external rotation. All of his pain is located in his groin.. Principal Diagnosis Same as "Discharge Diagnosis" noted below under Discharge Instructions. Discharge Exam On physical examination of the right hip, the dressing is clean and dry. His leg lengths are equal. He has active dorsiflexion plantarflexion of his right ankle.. Discharge Data Procedures Performed Operation Date: 12/16/21 07:00 Actual Procedures p Right Anterior Total Hip Arthroplasty(Right) - Jonathon Lucero DO Ordered Studies 12/16/21 07:00 FL hip RT 1V Routine Hospital Course (1) Status post right hip replacement: On December 16, 2021 when he arrived to [facility] and underwent a right hip replaced without complication. He had a spinal anesthetic. Postoperatively he was started on Xarelto for DVT prophylaxis and transferred to the general orthopedic floors. His hospital course was uneventful. On postop day #1, his vital signs are stable and his pain was well controlled. He was able to participate well with physical therapy doing ambulation and range of motion exercises. He was then discharged home. He will follow-up with orthopedics in 2 weeks. PG Care Time/CCT Total # of Minutes Spent Total Time Spent with Patient: Total time spent is greater than 50% in coordination of care (as documented) at patient's floor/unit and/or counseling patient: Discharge Plan Discharge Items Patient Disposition: Home - Home Health Services Reason For Visit: DJD Right Hip Discharge Diagnosis: Right hip replacement Activity: Per Instructions section Non-emergency contact: Surgeon Call non-emergency contact if: your wound has increased redness and your wound has increased drainage Follow-up/Referrals: Robert Carbajal MD [Primary Care Provider] - Diet: Regular Addtl Attending Provider Instructions: Activity and Therapy Recommendations: * If you are using [facility] then therapy will be provided at your home until they feel you have accomplished all of your goals. * If you are using [facility] then Physical Therapy will be provided until they feel you are ready to start Outpatient Physical Therapy. * If you are not using home therapy then Outpatient Physical Therapy should start about 3-5 days from your day of surgery. Therapy will last about 6-10 weeks * You were shown a series of exercises in the hospital. Do these exercises three times each day including the exercises you were shown in physical therapy. * Get up and walk several times each day.~ For the first four weeks, try not to stand or walk for more than one hour at a time. If you do stand or walk for more than one hour, you will not hurt anything, but your leg will likely swell.~~ * As you feel comfortable, you may change from the walker or crutches to a cane and~then to independent walking. Medications: * Narcotic You will likely be sent home from the hospital with a prescription for the narcotic pain medication that worked best throughout your stay. * Aspirin Most patients will be required to take Aspirin 81mg twice a day for 6 weeks after surgery. This is obtained [id number] and a prescription is not necessary. * Other medications may be prescribed for specific circumstances. If you have any questions, please call the office at . * Resume previous home medications unless otherwise instructed TEDs/Elastic Stockings: The white elastic stockings help limit swelling and prevent blood clots from forming in your legs. The more you wear them, the more they work. Wear them for six weeks. Dressing Care: Leave the Silverlon dressing in place for 7 days. After 7 days you may remove the dressing. If the incision is not draining then you may leave the jonas open to air. If there is a little bit of drainage or if the jonas are getting stuck on your clothing then cover the incision with a dry dressing. The jonas will be removed at your 2 week follow-up appointment. Showering: You may shower with the Silverlon dressing in place. Do not let the shower spray hit the dressing directly. Pat the Silverlon dressing dry. If the dressing becomes wet underneath, then simply remove the dressing. Keep the incision dry until you are 7 days out from the day of surgery. After 7 days you may remove the Silverlon dressing and shower with the jonas exposed. Let soapy water run over the jonas and pat them dry. Do not scrub or soak the incision. Things To Watch For: * Drainage from the incision site that occurs more than one week after your surgery. * Increased redness at the incision site. * Fever above 102 degrees Fahrenheit. * Unusual chest pain or shortness of breath. * Call [facility] at with any of the above problems Follow-Up Visit: Follow-up with Dr. Lucero's PA (Jonathon Bobo) 2-3 weeks after your day of surgery. He will remove your jonas and answer any questions. If you have any additional questions or concerns, Dr Lucero is usually in the office at the same time and will be available An appointment was probably scheduled when you signed-up for surgery in the office. If you have any questions call Office Instructions: More detailed instructions as well as Frequently Asked Questions were provided in a folder by our office when you signed-up for surgery. Please review these instructions when you get home. If you have any further questions or concerns, please feel free to call the office at [phone] Pending Studies at Discharge: No Stand-Alone Forms: [facility], Smoking Cessation Medications and DC Order Prescriptions: New oxycodone-acetaminophen 5-325 mg tablet 1 tab PO Q6H PRN (Reason: pain) Qty: 30 0RF Continued atorvastatin [Lipitor] 20 mg tablet 20 mg PO HS aspirin 81 mg Tablet,Delayed Release (Dr/Ec) 81 mg PO QPM triamcinolone acetonide 0.1 % cream 1 applic TOPICAL BID PRN (Reason: FLARE UPS) albuterol sulfate 90 mcg/actuation HFA aerosol inhaler 2 puff INHALATION Q4 PRN (Reason: Shortness Of Breath Or Wheezing) Spiriva with HandiHaler 18 mcg capsule, w/inhalation device 1 cap INHALATION QAM budesonide-formoterol [Symbicort] 160-4.5 mcg/actuation HFA aerosol inhaler 2 puff INHALATION BID famotidine [Pepcid] 40 mg tablet 20 mg PO QAM tramadol 50 mg Tablet 50 mg PO Q6H PRN (Reason: Pain) cholecalciferol (vitamin D3) [Vitamin D3] 25 mcg (1,000 unit) Tablet 25 mcg PO QPM magnesium oxide 400 mg (241.3 mg magnesium) Tablet 400 mg PO BID Qty: 60 0RF amiodarone 200 mg Tablet 200 mg PO BID metoprolol succinate 50 mg Tablet Extended Release 24 Hr 25 mg PO HS bumetanide 1 mg Tablet 1 mg PO BID Xarelto 15 mg tablet 15 mg PO QPM Rx Instructions: is awaiting to hear about holding potassium chloride 20 mEq tablet extended release 20 meq PO BID Discharge Orders: Discharge Order (Routine); Ordered 12/17/21 Ordered By: Jonathon Lucero Admission Data Admit Date/Time: 12/16/21 08:45 Attending Provider: Jonathon Lucero Admit Provider: Jonathon Lucero Primary Care Provider: Robert Carbajal
[2021-12-17] MEDS ORDERED: FLUTICASONE/VILANTEROL 100/25MCG 14 PUFFS/INHALER INH SCH (09:00)
[2021-12-17] MEDS ORDERED: UMECLIDINIUM BROMIDE 62.5MCG/BLISTER 7 PUFFS/INHALER INH SCH (09:00)
[2021-12-17] MEDS: DOCUSATE SODIUM 100 MG CAP PO SCH (09:20)
[2021-12-17] MEDS: AMIODARONE 200 MG TAB PO SCH (09:20)
[2021-12-17] MEDS: POTASSIUM CHLORIDE CRTAB 20 MEQ TABCR PO SCH (09:20)
[2021-12-17] MEDS: MULTIVITAMIN TAB PO SCH (09:21)
[2021-12-17] MEDS: BUMETANIDE 1 MG TAB PO SCH (09:21)
[2021-12-17] MEDS: MAGNESIUM OXIDE 400 MG TAB PO SCH (09:26)
[2021-12-17] MEDS ORDERED: RIVAROXABAN 15 MG TAB PO SCH (17:00)
== END 2021-12-17 12:01 | disposition home health service (06) ==
LOC: ASU 05:12 → 3W 05:12
DX: Z79.899 Other long term (current) drug therapy; Z88.2 Allergy status to sulfonamides; Z88.1 Allergy status to other antibiotic agents; M16.11 Unilateral primary osteoarthritis, right hip; Z79.82 Long term (current) use of aspirin